=== PATIENT | female | born 2000 | race Caucasian/White ===

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

== ENCOUNTER 2019-10-11 12:14 | Emergency (ER) | payer SELFPAY ==
--- OUTSIDE RECORDS SUMMARY | 2019-10-11 12:17 | XMS REPORT | Summary of Care ---
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 ([facility]) VIKTORIYA Guillory [address] [address] Encounter Details Date Type Department Care Team Description 06/14/2019 Office Visit [facility] Jp Curiel MD [address] [place] [address] Encounter for IUD [facility] Res[facility] removal (Primary Dx) [facility] [address] [place] [address] Allergies No Known Allergiesdocumented as of this encounter (statuses as of 06/15/2019) Medications Medication Sig Dispensed Refills Start Date End Date Status naproxen (NAPROSYN) 500 Take 1 tablet by 20 tablet 0 08/23/2018 Active mg tablet mouth 2 (two) times daily with meals. diazePAM (VALIUM) 10 mg Take 1 tablet by 1 tablet 0 06/14/2019 Active tabletIndications: mouth 3 (three) Encounter for IUD times daily. removal miSOPROStol 200 mcg Take 1 tablet by 2 tablet 0 06/14/2019 Active tabletIndications: mouth 4 (four) Encounter for IUD times daily. removal Hospital, Clinic, or Ordered Dose Route Frequency Start Date End Date Status Other Facility Administered Medication ibuprofen (IBU) 800 mg Oral ONCE 06/14/2019 06/14/2019 Discontinued tablet 800 mg documented as of this encounter (statuses as of 06/15/2019) Active Problems Problem Noted Date Well woman exam 06/07/2019 Contraceptive management 06/07/2019 IUD (intrauterine device) in place 06/07/2019 documented as of this encounter (statuses as of 06/15/2019) Immunizations Name Administration Dates Next Due HPV Unspecified 07/02/2011, 07/07/2009 documented as of this encounter Social History Tobacco Use Types Packs/Day Years Used Date Current Every Day Smoker Cigarettes 0.5 Started: 06/07/2015 Smokeless Tobacco: Never Used Alcohol Use Drinks/Week oz/Week Comments Never Alcohol Habits Answer Date Recorded How often do you have a drink containing alcohol? Never 06/07/2019 How many drinks containing alcohol do you have on a typical Not asked day when you are drinking? How often do you have six or more drinks on one occasion? Not asked Sex Assigned at Date Recorded Not on file Job Start Date Occupation Industry Not on file Not on file Not on file Travel History Travel Start Travel End No recent travel history available. documented as of this encounter Last Filed Vital Signs Vital Sign Reading Time Taken Comments Blood Pressure 120/72 06/14/2019 2:17 PM CDT Pulse 63 06/14/2019 2:17 PM CDT Temperature 36.8 C (98.2 F) 06/14/2019 2:17 PM CDT Respiratory Rate 18 06/14/2019 2:17 PM CDT Oxygen Saturation - - Inhaled Oxygen Concentration - - Weight 45.4 kg (100 lb) 06/14/2019 2:17 PM CDT Height 160 cm (5' 3") 06/14/2019 2:17 PM CDT Body Mass Index 17.71 06/14/2019 2:17 PM CDT documented in this encounter Progress Notes Johan Lopez MD - 06/14/2019 2:00 PM CDT Chief complaint: Chief Complaint Patient presents with INTRAUTERINE DEVICE removal HPI Ramya Rubio is a 19 year old female who presents for IUD removal. Patient had Mirena IUD inserted 4 years ago, does not have cycles with IUD in place. She has had 2 unsuccessful attempts to remove IUD, once in [facility] and again in [facility] (06/07/19). During the removals, shewas told that IUD strings were present but both times it was unable to be removed with traction. Reports vaginal spotting since last IUD removal attempt and headache but currently denies abdominal pain, fever/chills. Patient desires IUD removal due to intermitted 10/10 suprapubic pain. Patient has tried OCPs and diaphragm in the past and desires to use condoms for future contraception. Histories OB History Para Term AB Living 0 0 0 0 0 0 SAB TAB Ectopic Multiple Live Births 0 0 0 0 0 Past Medical History: Diagnosis Date Asthma 2012 Family History Problem Relation Age of Onset Asthma Mother Pulmonary Mother Breast Cancer Maternal Grandmother Heart Maternal Grandfather High cholesterol Maternal Grandfather Family Status Relation Name Status Mo Alive MGMo MGFa Past Surgical History: Procedure Laterality Date OTHER 2004 Kidney reflex Social History Socioeconomic History Marital status: Single Spouse name: Not on file Number of children: Not on file Years of education: Not on file Highest education level: Not on file Occupational History Not on file Social Needs Financial resource strain: Not on file Food insecurity: Worry: Not on file Inability: Not on file Transportation needs: Medical: Not on file Non-medical: Not on file Tobacco Use Smoking status: Current Every Day Smoker Packs/day: 0.50 Types: Cigarettes Start date: 06/07/2015 Smokeless tobacco: Never Used Substance and Sexual Activity Alcohol use: Never Frequency: Never Drug use: Never Sexual activity: Yes Partners: Male control/protection: IUD Comment: Last intercourse: 05/31/2019 Lifestyle Physical activity: Days per week: Not on file Minutes per session: Not on file Stress: Not on file Relationships Social connections: Talks on phone: Not on file Gets together: Not on file Attends islam service: Not on file Active member of club or organization: Not on file Attends meetings of clubs or organizations: Not on file Relationship status: Not on file Intimate partner violence: Fear of current or ex partner: Not on file Emotionally abused: Not on file Physically abused: Not on file Forced sexual activity: Not on file Other Topics Concern Not on file Social History Narrative Patient feels safe at home. Social History Substance and Sexual Activity Sexual Activity Yes Partners: Male control/protection: IUD Comment: Last intercourse: 05/31/2019 Labs No new labs Radiology No new radiology. Allergies Ramya has No Known Allergies. Medications Ramya has a current medication list which includes the following prescription(s) : diazepam, misoprostol, and naproxen. Review of Systems Constitutional: Negative. Negative for chills and fever. HENT: Negative. Respiratory: Negative. Cardiovascular: Negative. Gastrointestinal: Negative. Negative for abdominal pain, nausea and vomiting. Genitourinary: Positive for vaginal bleeding. Musculoskeletal: Negative. Skin: Negative. Neurological: Positive for headaches. Psychiatric/Behavioral: Negative. BP 120/72 (BP Location: Right arm, Patient Position: Sitting, BP CUFF SIZE: Adult Medium) | Pulse 63 | Temp 36.8 C (98.2 F) (Oral) | Resp 18 | Ht 5 ' 3" (1.6 m) | Wt 100 lb (45.4 kg) | LMP (LMP Unknown) | BMI 17.71 kg/m Pregravid BMI: Could not be calculated Physical Exam Vitals reviewed. Constitutional: She appears well-developed and well-nourished. Her body habitus is normal. Cardiovascular: No peripheral edema present. Pulmonary/Chest: Normal inspiratory effort. Abdominal: Abdomen is soft. No tenderness present. Neuro/Psychiatric: She has a normal mood and affect. IUD REMOVAL PROCEDURE NOTE Preoperative Diagnoses: unsuccessful IUD removal x2 The risks, benefits and alternatives were discussed. The patient voiced her understanding. She wished to proceed and an informed consent was obtained for IUD removal. Patient was identified by name and . Patient, procedure and site were confirmed by the followingclinicians: Johan Lopez MD and KESHA. Timeout performed by Johan Lopez MD. Procedure: The patient was placed on the exam table in a lithotomy position. Vaginal speculum was inserted. The cervix and IUD strings were visualized. IUD strings were grasped with the ring forceps and firm pressure applied in an attempt to deliver the IUD but removal was unsuccessful. At this time patient requested the procedure to be stopped. The patient experienced severe cramping during removal, which resolved spontaneously prior to discharge. The vaginal speculum was removed. The patient tolerated the procedure well and there were no complications. Post-procedure instructions given. Patient verbalized understanding. Findings ~3cm of black string x2 visualized from cervical os, IUD unable to be removed with traction. Procedure was aborted due to patient pain Assessment/Plan Encounter for IUD removal - IUD strings visualized (~3cm from cervical os) but procedure terminated due to patient discomfort - Schedule patient for IUD removal with H-scope clinic - Valium 10mg tablet x1 sent to pharmacy, instructed patient to bring to h- scope appointment - Misoprostol 200mcg PO x2 sent to pharmacy, instructed patient to take 1 dose at 2100 the night prior to the procedure and another dose the morning of procedure This visit did not involve counseling and coordination that comprised more than 50% of the visit time. D[facility] Prado [facility] PGY-2 Obstetrics and Gynecology documented in this encounter Plan of Treatment Health Maintenance Due Date Last Done Comments PNEUMOCOCCAL 0-64 YEARS COMBINED 2005 SERIES (1 of 1 - PPSV23) MENINGOCOCCAL B VACCINES (1 of 2 - 2009 Risk Bexsero 2-dose series) VARICELLA VACCINES (1 of 2 - 13+ 2012 2-dose series) HPV VACCINES (1 - Female 3-dose 2014 series) DTaP,Tdap,and Td Vaccines (1 - 2018 Tdap) INFLUENZA VACCINE 07/22/2019 CHLAMYDIA SCREENING 06/07/2020 06/07/2019 MENINGOCOCCAL VACCINE Aged Out No longer eligible based on patient's age to complete this topic documented as of this encounter Results Not on filedocumented in this encounter Visit Diagnoses Diagnosis Encounter for IUD removal - Primary Encounter for removal of intrauterine contraceptive device documented in this encounter Insurance Payer Benefit Plan Subscriber ID Effective Phone Address Type / Group Dates [facility] xxxxxxxxx 2019-Prese [phone] Medicaid WOMEN nt [address] [place] [address] documented as of this encounter
--- OUTSIDE RECORDS SUMMARY | 2019-10-11 12:17 | XMS REPORT ---
:2000 Author Organization [facility] Address [address] [place] [address] [address]. [address] [place] [address] Care Team Providers Name Role Phone Unavailable Unavailable Unavailable Problems This patient has no known problems. Allergies, Adverse Reactions, Alerts This patient has no known allergies or adverse reactions. Medications This patient has no known medications.
--- OUTSIDE RECORDS SUMMARY | 2019-10-11 12:17 | XMS REPORT | Summary of Care ---
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 clinic) VIKTORIYA Guillory [address] [place] [address] Encounter Details Date Type Department Care Team Description 06/14/2019 Office Visit [facility] Jp Curiel MD [address] [place] [address] Encounter for IUD [facility] Resident removal (Primary Dx) [facility] [address], [address] [place] [address] Allergies No Known Allergiesdocumented as [...] once in [facility] and again in [facility] (06/07/19). During the removals, shewas told that [...] file Gets together: Not on file Attends evangelical service: Not on file Active member of [...] the visit time. D/[facility] Lopez MD PGY-2 Obstetrics and Gynecology documented [...] Effective Phone Address Type / Group Dates [facility] xxxxxxxxx 2019-Prese [phone] Medicaid WOMEN nt [address] [place] [address] documented as of this encounter
--- OUTSIDE RECORDS SUMMARY | 2019-10-11 12:17 | XMS REPORT | Summary of Care ---
:2000 Author Organization [facility] Address [address] [place] [id number] Care Team Providers Name Role Phone [facility]aki[facility] Butler [facility] Primary [facility] Provider Reason for Visit Reason Comments Appointment when will surgery be scheduled Encounter Details Date Type Department Care Team Description 06/19/2019 Telephone [facility] Resident Appointment (when will [facility] surgery be scheduled) [facility] [address], [address] [place] [address] Allergies No Known Allergiesdocumented as of this encounter (statuses as of 06/20/2019) Medications Medication Sig Dispensed Refills Start Date [...] (four) Encounter for IUD times daily. removal documented as of this encounter (statuses as of 06/20/2019) Active Problems Problem Noted Date Well woman exam 06/07/2019 Contraceptive management 06/07/2019 IUD (intrauterine device) in place 06/07/2019 documented as of this encounter (statuses as of 06/20/2019) Immunizations Name Administration Dates Next Due HPV [...] of this encounter Last Filed Vital Signs Not on filedocumented in this encounter Plan of Treatment Health [...] Results Not on filedocumented in this encounter Insurance Payer Benefit Plan Subscriber ID Effective Phone Address Type / Group Dates [facility] xxxxxxxxx 2019-Farhat [phone] Medicaid WOMEN nt [address] [place] [address] documented as of this encounter
[2019-10-11 14:17] LABS: Urine Blood 3+ (NEG); Urine Glucose NEGATIVE (NEG); Urine Protein 1+ (NEG)
[2019-10-11 14:41] LABS: Urine Bacteria LOADED /HPF (<20); Urine Culture Reflex Order NOT NEEDED; Urine Mucus 1+ /HPF (NONE SEEN)
[2019-10-11] MEDS ORDERED: FENTANYL CITR 100 MCG/2 ML ONE (14:51)
[2019-10-11] MEDS ORDERED: NA CHLORIDE 0.9% 1,000 ML ONE (14:52)
[2019-10-11] MEDS ORDERED: ONDANSETRON 4 MG/2 ML VIAL ONE (14:52)
[2019-10-11] MEDS ORDERED: CEFTRIAXONE/SWI 1gm 1 GM/10 ML SYR ONE (14:52)
[2019-10-11 14:56] LABS: Absolute Lymphocytes (CBC) 2.1 K/uL (0.7-4.9); Basophils % 0.4 % (0-1.3); Hematocrit 35.7 % (36.0-45.0); MPV 9.2 fL (7.6-11.3); RBC Red Blood Cell Count 4.05 M/uL (3.86-4.86)
[2019-10-11 15:09] LABS: BUN Blood Urea Nitrogen 10 mg/dL (7-18); Bicarbonate 26 mmol/L (21-32); Glucose Level 86 mg/dL (74-106); Potassium 3.9 mmol/L (3.5-5.1); Sodium Level 136 mmol/L (136-145)
--- NOTE | 2019-10-11 15:16 | ER ---
Nurse's Notes [facility] Name: Ramya Rubio Age: 19 yrs Sex: Female : 2000 Arrival Date: 10/11/2019 Time: 12:16 Bed 28 Private MD: Diagnosis: Acute tubulo-interstitial nephritis Presentation: 10/11 12:23 Presenting complaint: Patient states: I have been having abd pain, chills, back pain at la1 home, have a problem with chronic UTI. Transition of care: patient was not received from another setting of care. Onset of symptoms was October 11, 2019. Risk Assessment: Do you want to hurt yourself or someone else? Patient reports no desire to harm self or others. Initial Sepsis Screen: Does the patient meet any 2 criteria? No. Patient's initial sepsis screen is negative. Does the patient have a suspected source of infection? No. Patient's initial sepsis screen is negative. Care prior to arrival: None. 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 - Social history:: Smoking status: Patient/guardian denies using tobacco. - Ebola Screening: : No symptoms or risks identified at this time. Screenin:25 Abuse screen: Denies threats or abuse. Denies injuries from another. Nutritional aj1 screening: No deficits noted. Tuberculosis screening: No symptoms or risk factors identified. 16:04 Fall Risk None identified. aj1 Assessment: 14:25 General: Appears in no apparent distress. uncomfortable, Behavior is calm, cooperative, aj1 appropriate for age. Pain: Complains of pain in back. Neuro: Level of Consciousness is awake, alert, obeys commands, Oriented to person, place, time, situation. Cardiovascular: Patient's skin is warm and dry. Respiratory: Airway is patent Respiratory effort is even, unlabored, Respiratory pattern is regular, symmetrical. GI: Abdomen is flat, non-distended, Bowel sounds present X 4 quads. Abd is soft and non tender X 4 quads. Reports nausea, vomiting, Patient currently denies diarrhea. : Denies burning with urination, urinary frequency, urgency. EENT: No signs and/or symptoms were reported regarding the EENT system. Derm: No signs and/or symptoms reported regarding the dermatologic system. Skin is pink, warm \T\ dry. normal. Musculoskeletal: No signs and/or symptoms reported regarding the musculoskeletal system. Circulation, motion, and sensation intact. 15:16 Reassessment: Discharge pending completion of IV fluids per EMELI Deleon. aj1 15:25 Reassessment: Patient appears in no apparent distress at this time. No changes from aj1 previously documented assessment. Patient and/or family updated on plan of care and expected duration. Pain level reassessed. Patient is alert, oriented x 3, equal unlabored respirations, skin warm/dry/pink. Vital Signs: 12:25 BP 118 / 57; Pulse 72; Resp 18; Temp 99.3(O); Pulse Ox 100% on R/A; Weight 45.36 kg; la1 Height 5 ft. 3 in. (160.02 cm); 14:25 BP 108 / 62; Pulse 87; Resp 18; Pulse Ox 100% on R/A; aj1 16:02 BP 105 / 66; Pulse 82; Resp 16; Pulse Ox 97% on R/A; aj1 12:25 Body Mass Index 17.71 (45.36 kg, 160.02 cm) la1 ED Course: 12:16 Patient arrived in ED. as 12:24 Triage completed. la1 12:25 Arm band placed on left wrist. la1 13:54 Gautam Morrissey PA is [facility]. jr8 13:54 Angel Kelly MD is Attending Physician. jr8 14:10 Lucy Ang, KELLIE is Primary Nurse. aj1 14:25 Patient has correct armband on for positive identification. Bed in low position. Call aj1 light in reach. Side rails up X 1. 14:25 No provider procedures requiring assistance completed. aj1 14:35 Inserted saline lock: 22 gauge in right antecubital area, using aseptic technique. aj1 16:03 IV discontinued, intact, bleeding controlled, No redness/swelling at site. Pressure aj1 dressing applied. Administered Medications: 14:58 Drug: Rocephin 1 grams Route: IV; Rate: calculated rate; Site: right antecubital; aj1 16:01 Follow up: IV Status: Completed infusion; IV Intake: 10ml 14:58 Drug: Zofran 4 mg Route: IVP; Site: right antecubital; [facility] 16:01 Follow up: Response: No adverse reaction 14:59 Drug: NS 0.9% 1000 ml Route: IV; Rate: 1000 ml; Site: right antecubital; [facility] 16:00 Follow up: IV Status: Completed infusion; IV Intake: 1000ml 14:59 Drug: fentaNYL (PF) 25 mcg {Note: RASS score 0, patient is alert.} Route: IVP; Site: [facility] right antecubital; 16:00 Follow up: Response: No adverse reaction; Pain is decreased; RASS: Alert and Calm (0) Intake: 16:00 IV: 1000ml; Total: 1000ml. 16:01 IV: 10ml; Total: 1010ml. [facility] Outcome: 15:15 Discharge ordered by MD. chambers 16:03 Discharged to home ambulatory. aj 16:03 Condition: good 16:03 Discharge instructions given to patient, Instructed on discharge instructions, follow up and referral plans. medication usage, Demonstrated understanding of instructions, follow-up care, medications, Prescriptions given X 2. 16:04 Patient left the ED. aj Addendum: 10/14/2019 07:36 Addendum: Culture Results: Positive urine culture. No further action required. Bacteria i w sensitive to prescribed antibiotic. Signatures: Lucy Ang RN RN aj1 Vivien Ojeda Irene, RN RN iw Roszak, Josh, PA PA jr8 Sanjay Murray RN RN la1
--- NOTE | 2019-10-11 15:16 | EDPHYS ---
Physician Documentation [facility] Name: Ramya Rubio Age: 19 yrs Sex: Female : 2000 Arrival Date: 10/11/2019 Time: 12:16 Bed 28 Private MD: ED Physician Angel Kelly HPI: 10/11 15:08 This 19 yrs old Female presents to ER via Ambulatory with complaints of jr8 Fever, Vomiting, Pelvic Pain, Low Back Pain. 15:08 The patient reports fever, not measured (subjective). Onset: The symptoms/episode jr8 began/occurred acutely, yesterday. Modifying factors: there are no obvious modifying factors. Associated signs and symptoms: Pertinent positives: abdominal pain, low back pain. Severity of symptoms: At their worst the symptoms were moderate in the emergency department the symptoms are unchanged. The patient has experienced similar episodes in the past, a few times. The patient has not recently seen a physician. Patient stated that she has history of both bladder and kidney infections. Stated that she started to have low back pain, abdominal pain, fever, and vomiting. Thinks she may have another one . 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 - Social history:: Smoking status: Patient/guardian denies using tobacco. - Ebola Screening: : No symptoms or risks identified at this time. ROS: 15:08 Eyes: Negative for injury, pain, redness, and discharge, ENT: Negative for injury, jr8 pain, and discharge, Neck: Negative for injury, pain, and swelling, Cardiovascular: Negative for chest pain, palpitations, and edema, Respiratory: Negative for shortness of breath, cough, wheezing, and pleuritic chest pain, MS/Extremity: Negative for injury and deformity, Skin: Negative for injury, rash, and discoloration, Neuro: Negative for headache, weakness, numbness, tingling, and seizure. 15:08 Abdomen/GI: Positive for abdominal pain, nausea, vomiting, Negative for diarrhea, constipation, abdominal cramps, abdominal distension, anorexia, dysphagia, hematemesis, black/tarry stool, rectal pain, rectal bleeding, bowel incontinence, flatulence. 15:08 Back: Positive for pain at rest, Negative for pain with movement. Exam: 15:08 Eyes: Pupils equal round and reactive to light, extra-ocular motions intact. Lids and jr8 lashes normal. Conjunctiva and sclera are non-icteric and not injected. Cornea within normal limits. Periorbital areas with no swelling, redness, or edema. ENT: Nares patent. No nasal discharge, no septal abnormalities noted. Tympanic membranes are normal and external auditory canals are clear. Oropharynx with no redness, swelling, or masses, exudates, or evidence of obstruction, uvula midline. Mucous membranes moist. Neck: Trachea midline, no thyromegaly or masses palpated, and no cervical lymphadenopathy. Supple, full range of motion without nuchal rigidity, or vertebral point tenderness. No Meningismus. Cardiovascular: Regular rate and rhythm with a normal S1 and S2. No gallops, murmurs, or rubs. Normal PMI, no JVD. No pulse deficits. Respiratory: Lungs have equal breath sounds bilaterally, clear to auscultation and percussion. No rales, rhonchi or wheezes noted. No increased work of breathing, no retractions or nasal flaring. Skin: Warm, dry with normal turgor. Normal color with no rashes, no lesions, and no evidence of cellulitis. MS/ Extremity: Pulses equal, no cyanosis. Neurovascular intact. Full, normal range of motion. Neuro: Awake and alert, GCS 15, oriented to person, place, time, and situation. Cranial nerves II-XII grossly intact. Motor strength 5/5 in all extremities. Sensory grossly intact. Cerebellar exam normal. Normal gait. 15:08 Abdomen/GI: Inspection: abdomen appears normal, Bowel sounds: active, all quadrants, Palpation: soft, in all quadrants, mild abdominal tenderness, in the suprapubic area, right lower quadrant and left lower quadrant, mass, is not appreciated, rebound tenderness, is not appreciated, voluntary guarding, is not appreciated, involuntary guarding, is not appreciated, no appreciated organomegaly, Indicators: McBurney's point is not tender, Cox's sign is negative, Rovsing's sign is negative, Liver: tenderness, is not appreciated. 15:08 Back: pain, that is mild, of the mid back area, ROM is normal, CVA tenderness, that is moderate, is noted bilaterally, muscle spasm, is not present. Vital Signs: 12:25 BP 118 / 57; Pulse 72; Resp 18; Temp 99.3(O); Pulse Ox 100% on R/A; Weight 45.36 kg; la1 Height 5 ft. 3 in. (160.02 cm); 14:25 BP 108 / 62; Pulse 87; Resp 18; Pulse Ox 100% on R/A; aj1 16:02 BP 105 / 66; Pulse 82; Resp 16; Pulse Ox 97% on R/A; aj1 12:25 Body Mass Index 17.71 (45.36 kg, 160.02 cm) la1 MDM: 13:58 Patient medically screened. jr8 15:15 Data reviewed: vital signs, nurses notes, lab test result(s). Data interpreted: Pulse jr8 oximetry: on room air is 100 %. Interpretation: normal. Counseling: I had a detailed discussion with the patient and/or guardian regarding: the historical points, exam findings, and any diagnostic results supporting the discharge/admit diagnosis, lab results, the need for outpatient follow up, a family practitioner, to return to the emergency department if symptoms worsen or persist or if there are any questions or concerns that arise at home. Response to treatment: the patient's symptoms have markedly improved after treatment, patient is well hydrated. 10/11 13:18 Order name: Urine Microscopic Only; Complete Time: 15:10 10/11 13:18 Order name: Urine Culture 10/11 13:21 Order name: Urine Dipstick--Ancillary (enter results); Complete Time: 14:18 10/11 13:21 Order name: Urine --Ancillary (enter results); Complete Time: 14:18 10/11 14:19 Order name: CBC with Diff; Complete Time: 15:10 [facility] 10/11 14:19 Order name: Basic Metabolic Panel; Complete Time: 15:10 [facility] 10/11 13:22 Order name: Urine Dipstick-Ancillary (obtain specimen); Complete Time: 13:22 10/11 13:22 Order name: Urine Test (obtain specimen); Complete Time: 13:22 10/11 14:19 Order name: IV; Complete Time: 14:46 jr8 Administered Medications: 14:58 Drug: Rocephin 1 grams Route: IV; Rate: calculated rate; Site: right antecubital; [facility] 16:01 Follow up: IV Status: Completed infusion; IV Intake: 10ml [facility] 14:58 Drug: Zofran 4 mg Route: IVP; Site: right antecubital; [facility] 16:01 Follow up: Response: No adverse reaction [facility] 14:59 Drug: NS 0.9% 1000 ml Route: IV; Rate: 1000 ml; Site: right antecubital; [facility] 16:00 Follow up: IV Status: Completed infusion; IV Intake: 1000ml [facility] 14:59 Drug: fentaNYL (PF) 25 mcg {Note: RASS score 0, patient is alert.} Route: IVP; Site: [facility] right antecubital; 16:00 Follow up: Response: No adverse reaction; Pain is decreased; RASS: Alert and Calm (0) [facility] Disposition: 17:29 Co-signature as Attending Physician, Angel Kelly MD. rn Disposition: 10/11/19 15:15 Discharged to Home. Impression: Acute tubulo-interstitial nephritis. - Condition is Stable. - Discharge Instructions: Pyelonephritis, Adult. - Prescriptions for Zofran 4 mg Oral Tablet - take 1 tablet by ORAL route every 12 hours As needed; 20 tablet. Bactrim DS 800- 160 mg Oral Tablet - take 1 tablet by ORAL route every 12 hours for 10 days; 20 tablet. - Work release form, Family Work Release, Medication Reconciliation Form, Thank You Letter, Antibiotic Education, Prescription Opioid Use form. - Follow up: Private Physician; When: 2 - 3 days; Reason: Recheck today's complaints, Continuance of care, Re-evaluation by your physician. - Problem is new. - Symptoms have improved. Signatures: Dispatcher [employer] [facility] Lucy Ang RN RN aj1 Angel Kelly MD MD rn Smirch, Shelby, RN RN ss Roszak, Josh, PA PA jr8 Sanjay Murray RN RN la1 Corrections: (The following items were deleted from the chart) 16:04 15:15 10/11/2019 15:15 Discharged to Home. Impression: Acute tubulo-interstitial aj1 nephritis. Condition is Stable. Forms are Medication Reconciliation Form, Thank You Letter, Antibiotic Education, Prescription Opioid Use. Follow up: Private Physician; When: 2 - 3 days; Reason: Recheck today's complaints, Continuance of care, Re-evaluation by your physician. Problem is new. Symptoms have improved. jr8
[2019-10-11 17:11] VITALS: TEMP 99.3
[2019-10-11 17:13] VITALS: BP 105/66; O2SAT 97
== END 2019-10-11 16:04 | disposition home or self-care (01) ==
LOC: ER 12:14
DX: N10 Acute pyelonephritis (principal)
CPT/HCPCS: 36415; 80048; 81003; 81015; 81025; 85025; 87077; 87086; 87088; 87186; 96365; 96375; 99283; J0696; J2405; J3010; J7030

== ENCOUNTER 2025-07-09 04:51 | Emergency (ER) | payer BC ==
--- OUTSIDE RECORDS SUMMARY | 2025-07-09 04:55 | XMS REPORT | Continuity of Care Document ---
Author Name Unknown Address [address] [facility] [place]. [address] [place] [address] Organization [facility] Address [address] [facility] [place]. [address] [place] [address] Care Team Providers Care Coal Sample Tester Name Role Phone Cayetano Herbert Attending Clinician Unavailab Cayetano Cruz Admitting Clinician Unavailab tory Payers Payer Name Policy Type Policy Number Effective Date Expirati on Date Source BCBS COMM [id number] 2024 00:00:00 Allergies, Adverse Reactions, Alerts Allergy Name Allergy Type Status Severity Reaction(s) Onset Date Inactive Date Treating Clinician Comments Source No Known Allergie s DA Active U 2022-11 1-20 00:00: 00 [facility] No Known Allergie s DA Active U 2022-11 0-17 00:00: 00 [facility] No Known Allergie s DA Active U 7 00:00: 00 [facility] No Known Allergie s DA Active U 7 00:00: 00 [facility] Procedures Procedure Date / Time Performed Performing Clinicia n Source [id number] 2023-10-11 00:00:00 [facility][email or web address] [facility] [id number] 2023-10-11 00:00:00 [facility]01 [facility] [id number] 2023-10-11 00:00:00 [facility]01 [facility] [id number] 2023-10-11 00:00:00 [facility]01 [facility] [id number] 2023-10-10 00:00:00 [facility]01 [facility] [id number] 2023-10-10 00:00:00 [facility]01 [facility] [id number] 2023-10-10 00:00:00 [facility]01 [facility] [id number] 2023-10-10 00:00:00 [facility]01 [facility] [id number] 2021-06-14 00:00:00 [facility]01 [facility] [id number] 2021-06-14 00:00:00 [facility]01 [facility] [id number] 2021-06-14 00:00:00 [facility]01 [facility] [id number] 2021-06-14 00:00:00 [facility]01 [facility] [id number] 2021-06-14 00:00:00 [facility]01 [facility] [id number] 2021-06-14 00:00:00 [facility]01 [facility] Encounters Start Date/Time End Date/Time Encounter Type Admission Type Attending [facility] Care Facility Care Department Encounter ID Source 2021-06-17 09:16:00 Inpatient VIRIDIANA Jameston Cayetano [facility] [id number] [facility] 2025-05-17 13:25:46 2025-05-17 14:50:53 Outpatient Elective [facility] [id number] [facility] 2023-10-10 21:08:00 2023-10-12 23:55:00 Inpatient Cayetano Art [facility] [id number] [facility] 2023-09-24 14:30:00 2023-09-24 15:15:00 Emergency EM Cayetano Herbert [facility] [id number] [facility] 2023-09-06 11:53:00 2023-09-06 14:53:00 Emergency EM Cayetano Herbert [facility] [id number] [facility] 2021-06-13 11:50:00 2021-06-16 19:07:00 Inpatient Cayetano Dang [facility] [id number] [facility] Results Test Description Test Time Test Comments Results Result Co mments Source [id number] 13:05:00* Test Item Value Reference Range Interpretation Comme nts GLUBED (test code = GLUBED) 82 mg/dL 65-110 N [id number] 10:31:00* Test Item Value Reference Range Interpretation Comme nts GLUCOSE (test code = GLU) 84 mg/dL 65-110 N COMPREHENSIVE METABOLIC [id number] 09:28:00* Test Item Value Reference Range Interpretation Comme nts SODIUM (test code = NA) 135 mEq/L 135-145 N POTASSIUM (test code = K) 4.0 mEq/L 3.5-5.0 N CHLORIDE (test code = CL) 100 mEq/L 100-115 N CARBON DIOXIDE (test code = CO2) 22 mEq/L 22-31 N ANION GAP (test code = GAP) 17.30 10-20 N GLUCOSE (test code = GLU) 84 mg/dL 65-110 N BLOOD UREA NITROGEN (test code = BUN) 9 mg/dL 7-18 N CREATININE (test code = CREAT) 0.6 mg/dL 0.5-1.0 N TOTAL PROTEIN (test code = PROT) 7.3 gm/dL 6.3-8.2 N ALBUMIN (test code = ALB) 3.2 gm/dL 3.4-4.8 L CALCIUM (test code = CA) 9.5 mg/dL 8.4-10.2 N BILIRUBIN TOTAL (test code = BILT) 0.3 mg/dL 0.2-1.0 N SGOT/AST (test code = AST) 20 units/L 15-37 N SGPT/ALT (test code = ALT) 13 units/L 12-78 N ALKALINE PHOSPHATASE TOTAL (test code = ALKP) 214 units/L 46-116 H GLOMERULAR FILTRATION RATE (test code = GFR) 128 ml/min >60 N The Glomerular Filtration Rate is a calculated parameterbased on serum Creatinine, patient age and sex. GFR valuesless than 60 mL/min/1.73 square meters are indicative ofChronic Kidney Disease. Values less than 15 mL/min/1.73square meters indicate Kidney failure. The calculation forGFR is based on the CKD-EPI (202) calculation. This formulais race indifferent and is the recommended formula for GFRby the National Kidney Foundation for Adults.The GFR will not calculate if the sex is unknown or if thepatient's age is <18 years. CBC W/AUTO [id number] 09:13:00* Test Item Value Reference Range Interpretation Comme nts WHITE BLOOD CELL (test code = WBC) 9.5 K/mm3 6.5-12.3 N RED BLOOD CELL (test code = RBC) 4.04 M/mm3 3.51-4.69 N HEMOGLOBIN (test code = HGB) 11.1 g/dL 10.1-13.8 N HEMATOCRIT (test code = HCT) 34.2 % 32.5-41.8 N MEAN CELL VOLUME (test code = MCV) 84.7 fL 84.6-96.6 N MEAN CELL HGB (test code = MCH) 27.5 pg 27.3-33.9 N MEAN CELL HGB CONCETRATION ( test code = MCHC) 32.5 gm/dL 32.0-34.2 N RED CELL DISTRIBUTION WIDTH (test code = RDW) 14.1 % 12.2-16.3 N PLATELET COUNT (test code = PLT) 186 K/mm3 134-363 N IMMATURE PLATELET FRACTION ( test code = IPF) 13.0 % 0.0-10.8 H MEAN PLATELET VOLUME (test c ode = MPV) 12.7 fL 9.2-12.7 N NEUTROPHIL % (test code = NT%) 61.7 % 57.9-77.3 N LYMPHOCYTE % (test code = LY%) 27.2 % 14.5-29.7 N MONOCYTE % (test code = MO%) 9.8 % 3.6-10.2 N EOSINOPHIL % (test code = EO%) 0.8 % 0.0-3.0 N BASOPHIL % (test code = BA%) 0.2 % 0.1-0.9 N NEUTROPHIL # (test code = NT#) 5.8 K/mm3 LYMPHOCYTE # (test code = LY#) 2.6 K/mm3 MONOCYTE # (test code = MO#) 0.9 K/mm3 EOSINOPHIL # (test code = EO#) 0.08 K/mm3 BASOPHIL # (test code = BA#) 0.0 K/mm3 RBC MORPHOLOGY REQUIRED (carol t code = RBCM) NORMAL NORMAL PLATELET MORPHOLOGY REQUIRED (test code = PLTMR) NORMAL NORMAL AG HEPATITIS B [id number] 02:48:00* Test Item Value Reference Range Interpretation Comme nts AG HEPATITIS B SURFACE (test code = HBSAG) NONREACTIVE NONREACTIVE AB HEPATITIS C [id number] 02:48:00* Test Item Value Reference Range Interpretation Comme nts AB HEPATITIS C (test code = HCVAB) NONREACTIVE NONREACTIVE SIGNAL TO CUTOFF (test code = CUTOFF) 0.14 <0.80 N AB [id number] 02:48:00* Test Item Value Reference Range Interpretation Comme nts AB TREPONEMA (test code = TREPAB) NONREACTIVE NONREACTIVE AB HIV 1 02:48:00* Test Item Value Reference Range Interpretation Comme nts AB HIV 1 2 (test code = GPD01KY) NONREACTIVE NONREACTIVE Done by [employer] 4[employer] Gen HIV Ag/Ab Combo Screen [id number] 22:52:00* Test Item Value Reference Range Interpretation Comme nts GLUCOSE (test code = GLU) 99 mg/dL 65-110 N CBC W/AUTO [id number] 22:26:00* Test Item Value Reference Range Interpretation Comme nts WHITE BLOOD CELL (test code = WBC) 9.6 K/mm3 6.5-12.3 N RED BLOOD CELL (test code = RBC) 3.69 M/mm3 3.51-4.69 N HEMOGLOBIN (test code = HGB) 10.4 g/dL 10.1-13.8 N HEMATOCRIT (test code = HCT) 31.5 % 32.5-41.8 L MEAN CELL VOLUME (test code = MCV) 85.4 fL 84.6-96.6 N MEAN CELL HGB (test code = MCH) 28.2 pg 27.3-33.9 N MEAN CELL HGB CONCETRATION ( test code = MCHC) 33.0 gm/dL 32.0-34.2 N RED CELL DISTRIBUTION WIDTH (test code = RDW) 13.9 % 12.2-16.3 N PLATELET COUNT (test code = PLT) 187 K/mm3 134-363 N IMMATURE PLATELET FRACTION ( test code = IPF) 13.9 % 0.0-10.8 H MEAN PLATELET VOLUME (test c ode = MPV) 13.4 fL 9.2-12.7 H NEUTROPHIL % (test code = NT%) 66.5 % 57.9-77.3 N LYMPHOCYTE % (test code = LY%) 21.6 % 14.5-29.7 N MONOCYTE % (test code = MO%) 10.8 % 3.6-10.2 H EOSINOPHIL % (test code = EO%) 0.5 % 0.0-3.0 N BASOPHIL % (test code = BA%) 0.2 % 0.1-0.9 N NEUTROPHIL # (test code = NT#) 6.4 K/mm3 LYMPHOCYTE # (test code = LY#) 2.1 K/mm3 MONOCYTE # (test code = MO#) 1.0 K/mm3 EOSINOPHIL # (test code = EO#) 0.05 K/mm3 BASOPHIL # (test code = BA#) 0.0 K/mm3 RBC MORPHOLOGY REQUIRED (carol t code = RBCM) NORMAL NORMAL PLATELET MORPHOLOGY REQUIRED (test code = PLTMR) NORMAL NORMAL [id number] 21:38:00* Test Item Value Reference Range Interpretation Comme nts GLUBED (test code = GLUBED) 86 mg/dL 65-110 N - US FET BIO PH NH W/O [id number] [facility]:36[facility] 2000 Sex: F Patient Name: STEFFEN PARMAR Unit No: [id number] EXAMS: CPT CODE: [id number] US FET BIO PHPR W/O NST 73839 BIOPHYSICAL PROFILE COMPARISON: None PRESENTATION: Cephalic PLACENTA: Anterior, grade 2. No placenta previa HEART RATE: 147 bpm CERVICAL LENGTH: 3.7 cm Breathin Somatic motion: 2 Tone: 2 MICHAEL: 16.2 cm 2 BIOPHYSICAL PROFILE: 06/28 at 1336 Reported and signed by: Lee Ricardo MD CC: Cayetano Herbert MD Technologist: Nadya Durand RDMS Probe: Trnscrbd D/ (1336) t.SDR.[id number] Orig Print D/T: S: 09/06/2023 (1339) [facility] NAME: STEFFEN PARMAR Radiology Department PHYS: Cayetano Herbert [address] : 2000 AGE: 23 SEX: F [place] [address] LOC: F.STAR PHONE #: [phone] EXAM DATE: 09/06/2023 STATUS: REG ER FAX #: [phone] RAD NO: Page 1 Signed Report Patient Name: STEFFEN PARMAR Unit No: [id number] EXAMS: CPT CODE: [id number] FET BIO PH NH W/O NST 32068 (Continued) [facility] NAME: STEFFEN PARMAR Radiology Department PHYS: CHRISTINE Cayetano Herbert [address] : 2000 AGE: 23 SEX: F [place] [address] LOC: SHREE PHONE #: [phone] DATE: 09/06/2023 STATUS: REG ER FAX #: [phone] RAD NO: Page 2 Signed ReportCOMPREHENSIVE METABOLIC PANEL 2021-06-16 07:38:00* Test Item Value Reference Range Interpretation Comme nts SODIUM (test code = NA) 139 mEq/L 135-145 N POTASSIUM (test code = K) 4.1 mEq/L 3.5-5.0 N CHLORIDE (test code = CL) 104 mEq/L 100-115 N CARBON DIOXIDE (test code = CO2) 26 mEq/L 22-31 N ANION GAP (test code = GAP) 13.10 10-20 N GLUCOSE (test code = GLU) 109 mg/dL 65-110 N BLOOD UREA NITROGEN (test co de = BUN) 7 mg/dL 7-18 N GLOMERULAR FILTRATION RATE ( test code = GFR) 69 ml/min >60 N CREATININE (test code = CREAT) 1.0 mg/dL 0.5-1.0 N TOTAL PROTEIN (test code = PROT) 6.0 gm/dL 6.3-8.2 L ALBUMIN (test code = ALB) 2.4 gm/dL 3.4-4.8 L CALCIUM (test code = CA) 7.8 mg/dL 8.4-10.2 L BILIRUBIN TOTAL (test code = BILT) 0.2 mg/dL 0.2-1.0 N SGOT/AST (test code = AST) 21 units/L 15-37 N SGPT/ALT (test code = ALT) 13 units/L 12-78 N ALKALINE PHOSPHATASE TOTAL ( test code = ALKP) 176 units/L 46-116 H CBC W/AUTO [id number] 07:13:00* Test Item Value Reference Range Interpretation Comme nts WHITE BLOOD CELL (test code = WBC) 13.6 K/mm3 6.5-12.3 H RED BLOOD CELL (test code = RBC) 3.09 M/mm3 3.51-4.69 L HEMOGLOBIN (test code = HGB) 9.0 g/dL 10.1-13.8 L HEMATOCRIT (test code = HCT) 27.4 % 32.5-41.8 L MEAN CELL VOLUME (test code = MCV) 88.7 fL 84.6-96.6 N MEAN CELL HGB (test code = MCH) 29.1 pg 27.3-33.9 N MEAN CELL HGB CONCETRATION ( test code = MCHC) 32.8 gm/dL 32.0-34.2 N RED CELL DISTRIBUTION WIDTH (test code = RDW) 13.5 % 12.2-16.3 N PLATELET COUNT (test code = PLT) 173 K/mm3 134-363 N MEAN PLATELET VOLUME (test c ode = MPV) 12.8 fL 9.2-12.7 H NEUTROPHIL % (test code = NT%) 74.8 % 57.9-77.3 N LYMPHOCYTE % (test code = LY%) 16.1 % 14.5-29.7 N MONOCYTE % (test code = MO%) 6.8 % 3.6-10.2 N EOSINOPHIL % (test code = EO%) 1.3 % 0.0-3.0 N BASOPHIL % (test code = BA%) 0.3 % 0.1-0.9 N NEUTROPHIL # (test code = NT#) 10.1 K/mm3 LYMPHOCYTE # (test code = LY#) 2.2 K/mm3 MONOCYTE # (test code = MO#) 0.9 K/mm3 EOSINOPHIL # (test code = EO#) 0.18 K/mm3 BASOPHIL # (test code = BA#) 0.0 K/mm3 RBC MORPHOLOGY REQUIRED (carol t code = RBCM) NORMAL NORMAL PLATELET MORPHOLOGY REQUIRED (test code = PLTMR) NORMAL NORMAL UA RFLX MICR CULT IF [id number] 06:22:00* Test Item Value Reference Range Interpretation Comme nts UA COLOR (test code = COLU) COLORLESS YELLOW UA APPEARANCE (test code = APPU) CLEAR CLEAR UA GLUCOSE DIPSTICK (test co de = DGLUU) NEGATIVE NEG UA BILIRUBIN DIPSTICK (test code = BILU) NEGATIVE NEG UA KETONE DIPSTICK (test cod e = KETU) NEGATIVE NEG UA SPECIFIC GRAVITY (test co de = SGU) 1.004 1.001-1.035 N UA BLOOD DIPSTICK (test code = DEVIN) 2+ NEG A UA PH DIPSTICK (test code = KIMBERLEE) 6.0 5-9 UA PROTEIN DIPSTICK (test co de = PROU) NEGATIVE NEG UA UROBILINIOGEN DIPSTICK (test code = URO) NEGATIVE mg/dL NEG UA NITRITE DIPSTICK (test co de = HALINA) NEG NEG UA LEUKOCYTE ESTERASE DIPSTI CK (test code = LEUU) NEG NEG UA WBC (test code = WBCU) 3-5 #/hpf NONE SEEN A UA RBC (test code = RBCU) 6-10 #/hpf NONE SEEN A UA EPITHELIAL CELLS (test co de = EPIU) RARE #/HPF RARE-FEW UA BACTERIA (test code = BACU) RARE /HPF RARE-FEW UA MUCUS (test code = MUCU) RARE NONE SEEN Indication for culture: RiskForSepsis-no oth srcSpecimen Description: CLEAN CATCHLACTIC [id number] 06:22:00* Test Item Value Reference Range Interpretation Comme nts LACTIC ACID (test code = LACT) 1.1 MMOL/L 0.5-2.2 N PROTHROMBIN [id number] 06:22:00* Test Item Value Reference Range Interpretation Comme nts PROTHROMBIN TIME PATIENT (te st code = PTP) 10.4 secs 10.1-12.3 N IS PATIENT ON ANTICOAGULANTS ? NINTERNATIONAL NORMAL [id number] 06:22:00* Test Item Value Reference Range Interpretation Comme nts INTERNATIONAL NORMAL RATIO (test code = INR) 0.94 The INR is to be used only for monitoring oral anticoagulanttherapy. INDICATION INR VALUE 1. Prophylaxis including high risk surgery 2.0 - 2.52. Deep venous thrombosis. Pulmonary embolism. Atrial fibrillation or bioprosthetic heart valves 2.0 - 3.03. Mechanical heart valves or recurrent systemic embolism. 3.0 - 3.5 IS PATIENT ON ANTICOAGULANTS ? NTHROMBOPLASTIN TIME [id number] 06:22:00* Test Item Value Reference Range Interpretation Comme nts THROMBOPLASTIN TIME PARTIAL (test code = PTT) 31.3 secs 22-38 N IS PATIENT ON ANTICOAGULANTS ? NCOMPREHENSIVE METABOLIC [id number] 06:19:00 * Test Item Value Reference Range Interpretation Comme nts SODIUM (test code = NA) 142 mEq/L 135-145 N POTASSIUM (test code = K) 4.3 mEq/L 3.5-5.0 N CHLORIDE (test code = CL) 110 mEq/L 100-115 N CARBON DIOXIDE (test code = CO2) 25 mEq/L 22-31 N ANION GAP (test code = GAP) 11.00 10-20 N GLUCOSE (test code = GLU) 78 mg/dL 65-110 N BLOOD UREA NITROGEN (test co de = BUN) 10 mg/dL 7-18 N GLOMERULAR FILTRATION RATE ( test code = GFR) 69 ml/min >60 N CREATININE (test code = CREAT) 1.0 mg/dL 0.5-1.0 N TOTAL PROTEIN (test code = PROT) 5.1 gm/dL 6.3-8.2 L ALBUMIN (test code = ALB) 2.1 gm/dL 3.4-4.8 L CALCIUM (test code = CA) 8.2 mg/dL 8.4-10.2 L BILIRUBIN TOTAL (test code = BILT) 0.2 mg/dL 0.2-1.0 N SGOT/AST (test code = AST) 28 units/L 15-37 N SGPT/ALT (test code = ALT) 15 units/L 12-78 N ALKALINE PHOSPHATASE TOTAL ( test code = ALKP) 168 units/L 46-116 H CBC W/AUTO [id number] 06:03:00* Test Item Value Reference Range Interpretation Comme nts WHITE BLOOD CELL (test code = WBC) 20.5 K/mm3 6.5-12.3 HH RESULTS CALLED Enrique PierreREAD BACK & CONFIRMED? YES.BY [id number] 06/15/21601.Results verified by repeat analysis RED BLOOD CELL (test code = RBC) 2.82 M/mm3 3.51-4.69 L HEMOGLOBIN (test code = HGB) 8.2 g/dL 10.1-13.8 L HEMATOCRIT (test code = HCT) 25.1 % 32.5-41.8 L MEAN CELL VOLUME (test code = MCV) 89.0 fL 84.6-96.6 N MEAN CELL HGB (test code = MCH) 29.1 pg 27.3-33.9 N MEAN CELL HGB CONCETRATION (test code = MCHC) 32.7 gm/dL 32.0-34.2 N RED CELL DISTRIBUTION WIDTH (test code = RDW) 13.3 % 12.2-16.3 N PLATELET COUNT (test code = PLT) 128 K/mm3 134-363 L IMMATURE PLATELET FRACTION (test code = IPF) 23.1 % 0.0-10.8 H MEAN PLATELET VOLUME (test code = MPV) 14.0 fL 9.2-12.7 H NEUTROPHIL % (test code = NT%) 76.5 % 57.9-77.3 N LYMPHOCYTE % (test code = LY%) 14.7 % 14.5-29.7 N MONOCYTE % (test code = MO%) 7.8 % 3.6-10.2 N EOSINOPHIL % (test code = EO%) 0.3 % 0.0-3.0 N BASOPHIL % (test code = BA%) 0.2 % 0.1-0.9 N NEUTROPHIL # (test code = NT#) 15.7 K/mm3 LYMPHOCYTE # (test code = LY#) 3.0 K/mm3 MONOCYTE # (test code = MO#) 1.6 K/mm3 EOSINOPHIL # (test code = EO#) 0.06 K/mm3 BASOPHIL # (test code = BA#) 0.0 K/mm3 RBC MORPHOLOGY REQUIRED (test code = RBCM) NORMAL NORMAL PLATELET MORPHOLOGY REQUIRED (test code = PLTMR) NORMAL NORMAL CBC W/AUTO [id number] 23:27:00* Test Item Value Reference Range Interpretation Comme nts WHITE BLOOD CELL (test code = WBC) 18.0 K/mm3 6.5-12.3 H RED BLOOD CELL (test code = RBC) 2.95 M/mm3 3.51-4.69 L HEMOGLOBIN (test code = HGB) 8.6 g/dL 10.1-13.8 L HEMATOCRIT (test code = HCT) 26.6 % 32.5-41.8 L MEAN CELL VOLUME (test code = MCV) 90.2 fL 84.6-96.6 N MEAN CELL HGB (test code = MCH) 29.2 pg 27.3-33.9 N MEAN CELL HGB CONCETRATION (test code = MCHC) 32.3 gm/dL 32.0-34.2 N RED CELL DISTRIBUTION WIDTH (test code = RDW) 13.2 % 12.2-16.3 N PLATELET COUNT (test code = PLT) 104 K/mm3 134-363 L SPECIMEN CLOTTED PLT CLUMPS IMMATURE PLATELET FRACTION (test code = IPF) 24.3 % 0.0-10.8 H MEAN PLATELET VOLUME (test code = MPV) 14.1 fL 9.2-12.7 H NEUTROPHIL % (test code = NT%) 77.5 % 57.9-77.3 H LYMPHOCYTE % (test code = LY%) 14.3 % 14.5-29.7 L MONOCYTE % (test code = MO%) 7.4 % 3.6-10.2 N EOSINOPHIL % (test code = EO%) 0.2 % 0.0-3.0 N BASOPHIL % (test code = BA%) 0.2 % 0.1-0.9 N NEUTROPHIL # (test code = NT#) 14.0 K/mm3 LYMPHOCYTE # (test code = LY#) 2.6 K/mm3 MONOCYTE # (test code = MO#) 1.3 K/mm3 EOSINOPHIL # (test code = EO#) 0.04 K/mm3 BASOPHIL # (test code = BA#) 0.0 K/mm3 RBC MORPHOLOGY REQUIRED (test code = RBCM) NORMAL NORMAL PLATELET MORPHOLOGY REQUIRED (test code = PLTMR) ABNORMAL NORMAL PLT CLUMPS URINALYSIS [id number] 10:28:00* Test Item Value Reference Range Interpretation Comme nts UA COLOR (test code = COLU) YELLOW YELLOW UA APPEARANCE (test code = APPU) Slightly-Cloudy CLEAR UA GLUCOSE DIPSTICK (test code = DGLUU) NEGATIVE NEG UA BILIRUBIN DIPSTICK (test code = BILU) NEGATIVE NEG UA KETONE DIPSTICK (test cod e = KETU) NEGATIVE NEG UA SPECIFIC GRAVITY (test code = SGU) 1.019 1.001-1.035 N UA BLOOD DIPSTICK (test code = DEVIN) NEG NEG UA PH DIPSTICK (test code = KIMBERLEE) 6.0 5-9 UA PROTEIN DIPSTICK (test code = PROU) 3+ NEG A UA UROBILINIOGEN DIPSTICK (test code = URO) NEGATIVE mg/dL NEG UA NITRITE DIPSTICK (test code = HALINA) NEG NEG UA LEUKOCYTE ESTERASE DIPSTICK (test code = LEUU) NEG NEG UA WBC (test code = WBCU) 6-10 #/hpf NONE SEEN A UA RBC (test code = RBCU) 0-2 #/hpf NONE SEEN UA EPITHELIAL CELLS (test code = EPIU) FEW #/HPF RARE-FEW UA BACTERIA (test code = BACU) RARE /HPF RARE-FEW UA MUCUS (test code = MUCU) 4+ NONE SEEN URINE SAMPLE: CLEAN CATCHUR PROTEIN/CREATININE [id number] 10:28:00* Test Item Value Reference Range Interpretation Comme nts UR PROTEIN RANDOM (test code = PROTU) 367.2 mg/dL UR CREATININE RANDOM (test code = CREATU) 222.3 mg/dL PROTEIN/CREATININE RATIO (test code = P/CRATIO) 1651.8 mg/gcrea <200 H URINE SAMPLE: CLEAN CATCHCBC W/AUTO [id number] 10:27:00* Test Item Value Reference Range Interpretation Comme nts WHITE BLOOD CELL (test code = WBC) 12.2 K/mm3 6.5-12.3 N RED BLOOD CELL (test code = RBC) 3.86 M/mm3 3.51-4.69 N HEMOGLOBIN (test code = HGB) 11.1 g/dL 10.1-13.8 N HEMATOCRIT (test code = HCT) 33.8 % 32.5-41.8 N MEAN CELL VOLUME (test code = MCV) 87.6 fL 84.6-96.6 N MEAN CELL HGB (test code = MCH) 28.8 pg 27.3-33.9 N MEAN CELL HGB CONCETRATION ( test code = MCHC) 32.8 gm/dL 32.0-34.2 N RED CELL DISTRIBUTION WIDTH (test code = RDW) 13.1 % 12.2-16.3 N PLATELET COUNT (test code = PLT) 164 K/mm3 134-363 N MEAN PLATELET VOLUME (test c ode = MPV) 14.2 fL 9.2-12.7 H NEUTROPHIL % (test code = NT%) 73.1 % 57.9-77.3 N LYMPHOCYTE % (test code = LY%) 16.0 % 14.5-29.7 N MONOCYTE % (test code = MO%) 9.9 % 3.6-10.2 N EOSINOPHIL % (test code = EO%) 0.3 % 0.0-3.0 N BASOPHIL % (test code = BA%) 0.2 % 0.1-0.9 N NEUTROPHIL # (test code = NT#) 8.9 K/mm3 LYMPHOCYTE # (test code = LY#) 2.0 K/mm3 MONOCYTE # (test code = MO#) 1.2 K/mm3 EOSINOPHIL # (test code = EO#) 0.04 K/mm3 BASOPHIL # (test code = BA#) 0.0 K/mm3 RBC MORPHOLOGY REQUIRED (carol t code = RBCM) NORMAL NORMAL PLATELET MORPHOLOGY REQUIRED (test code = PLTMR) NORMAL NORMAL COMPREHENSIVE METABOLIC [id number] 09:54:00* Test Item Value Reference Range Interpretation Comme nts SODIUM (test code = NA) 137 mEq/L 135-145 N POTASSIUM (test code = K) 4.2 mEq/L 3.5-5.0 N CHLORIDE (test code = CL) 104 mEq/L 100-115 N CARBON DIOXIDE (test code = CO2) 22 mEq/L 22-31 N ANION GAP (test code = GAP) 15.10 10-20 N GLUCOSE (test code = GLU) 77 mg/dL 65-110 N BLOOD UREA NITROGEN (test co de = BUN) 12 mg/dL 7-18 N GLOMERULAR FILTRATION RATE ( test code = GFR) 78 ml/min >60 N CREATININE (test code = CREAT) 0.9 mg/dL 0.5-1.0 N TOTAL PROTEIN (test code = PROT) 6.1 gm/dL 6.3-8.2 L ALBUMIN (test code = ALB) 2.5 gm/dL 3.4-4.8 L CALCIUM (test code = CA) 9.0 mg/dL 8.4-10.2 N BILIRUBIN TOTAL (test code = BILT) 0.2 mg/dL 0.2-1.0 N SGOT/AST (test code = AST) 22 units/L 15-37 N SGPT/ALT (test code = ALT) 13 units/L 12-78 N ALKALINE PHOSPHATASE TOTAL ( test code = ALKP) 228 units/L 46-116 H URINALYSIS [id number] 09:49:00* Test Item Value Reference Range Interpretation Comme nts UA COLOR (test code = COLU) YELLOW UA APPEARANCE (test code = APPU) CLEAR UA GLUCOSE DIPSTICK (test code = DGLUU) NEGATIV E UA BILIRUBIN DIPSTICK (test code = BILU) NEGATIVE UA KETONE DIPSTICK (test code = KETU) NEGATIVE UA SPECIFIC GRAVITY (test code = SGU) 1.001-1.0 35 UA BLOOD DIPSTICK (test code = DEVIN) NEGATIVE UA PH DIPSTICK (test code = KIMBERLEE) 5-9 UA PROTEIN DIPSTICK (test code = PROU) NEGATIVE UA UROBILINIOGEN DIPSTICK (t est code = URO) mg/dL NEG UA NITRITE DIPSTICK (test code = HALINA) NEGATIVE UA LEUKOCYTE ESTERASE DIPSTI CK (test code = LEUU) NEG UA WBC (test code = WBCU) #/hpf NONE SEEN UA EPITHELIAL CELLS (test code = EPIU) #/HPF RARE-FEW URINE SAMPLE: CLEAN CATCHUR PROTEIN/CREATININE [id number] 09:49:00* Test Item Value Reference Range Interpretation Comme nts UR PROTEIN RANDOM (test code = PROTU) 367.2 mg/dL UR CREATININE RANDOM (test code = CREATU) 222.3 mg/dL PROTEIN/CREATININE RATIO (test code = P/CRATIO) 1651.8 mg/gcrea <200 H URINE SAMPLE: CLEAN CATCH Notes Date/Time Note Provider Source 2023-10-12 19:32:00 [facility] ([facility]) OB Disch REPORT#:[id number] REPORT STATUS: Signed REPORT INITIALIZATION DATE:10/12/23 TIME: 1931 PATIENT: STEFFEN PARMAR UNIT #: [id number] ROOM/BED: [address] : 99 AGE: 23 SEX: F ATTEND: Cayetano Herbert MD ADM AUTHOR: Caeytano Herbert MD REPT SERVICE DT/TIME: 10/12/231931 * ALL edits or amendments must be made on the electronic/computer document * Subjective Subjective Admission EGA: Weeks: 38 Days: 5 EGA at delivery (wks/days): 38 weeks Status/day: post Patient reports: Patient reports: Yes: normal lochia, pain management effective, tolerating po well, voiding well, voiding without pain, tolerating ambulation. No: complaints, bowel movement, nausea, vomiting, excessive bleeding, abdominal pain. Nursing reports: Nursing reports: No: complaints. Objective General VS: Vital Signs Date Temp Pulse Resp B/P B/P Mean Pulse Ox FiO2 10/11-10/12 97.6-98.1 61-87 16-20 104-132/62-76 94.0 99 Last Documented: Result Date Time B/P 118/62 10/12 120 Temp 98.1 10/12 120 Pulse 67 10/12 120 Resp 20 10/12 120 Pulse Ox 99 10/12 0526 B/P Mean 94.0 10/11 1941 PATIENT WEIGHT: Weight (lb): Weight (oz): Weight (kg): [id number] Physical Exam Cardiac: normal rhythm Lungs: clear to auscultation Neuro: Exam: alert, oriented x3, normal speech Abdomen: post gravid, soft, no abnormal tenderness, no guarding, no rebound tenderness, normoactive bowel sounds Uterus: involution appropriate, non-tender Fundus: firm, non-tender Lochia: normal Lower extremities: Edema: trace Results Findings/Data: Laboratory Tests Test Result Date Time Chemistry Sodium (135 - 145 mEq/L) 135 10/11 08 Potassium (3.5 - 5.0 mEq/L) 4.0 10/11 08 Chloride (100 - 115 mEq/L) 100 10/11 0851 Carbon Dioxide (22 - 31 mEq/L) 22 10/11 08 Anion Gap (10 - 20) 17.30 10/11 08 BUN (7 - 18 mg/dL) 9 10/11 08 Creatinine (0.5 - 1.0 mg/dL) 0.6 10/11 851 Glomerular Filtr Rate (>60 ml/min) 128 10/11 08 Glucose (65 - 110 mg/dL) 84 10/11 08 POC Glucose (65 - 110 mg/dL) 82 10/11 1302 Calcium (8.4 - 10.2 mg/dL) 9.5 10/11 08 Total Bilirubin (0.2 - 1.0 mg/dL) 0.3 10/11 851 AST (15 - 37 units/L) 20 10/11 08 ALT (12 - 78 units/L) 13 10/11 851 Total Alk Phosphatase (46 - 116 units/L) 214 H 10/11 08 Total Protein (6.3 - 8.2 gm/dL) 7.3 10/11 08 Albumin (3.4 - 4.8 gm/dL) 3.2 L 10/11 08 Hematology WBC (6.5 - 12.3 K/mm3) 9.5 11/850 RBC (3.51 - 4.69 M/mm3) 4.04 10/11 851 Hgb (10.1 - 13.8 g/dL) 9.8 L 10/12 2056 Hct (32.5 - 41.8 %) 29.2 L 10/12 2056 MCV (84.6 - 96.6 fL) 84.7 10/11 851 MCH (27.3 - 33.9 pg) 27.5 10/11 851 MCHC (32.0 - 34.2 gm/dL) 32.5 10/11 851 RDW (12.2 - 16.3 %) 14.1 10/11 851 Plt Count (134 - 363 K/mm3) 186 10/11 851 MPV (9.2 - 12.7 fL) 12.7 10/11 851 Neut % (Auto) (57.9 - 77.3 %) 61.7 10/11 851 Lymph % (Auto) (14.5 - 29.7 %) 27.2 10/11 851 [place] % (Auto) (3.6 - 10.2 %) 9.8 10/11 851 Eos % (Auto) (0.0 - 3.0 %) 0.8 10/11 851 Baso % (Auto) (0.1 - 0.9 %) 0.2 10/11 851 Neut # (Auto) (K/mm3) 5.8 10/11 851 Lymph # (Auto) (K/mm3) 2.6 10/11 851 [place] # (Auto) (K/mm3) 0.9 10/11 851 Eos # (Auto) (K/mm3) 0.08 10/11 851 Baso # (Auto) (K/mm3) 0.0 10/11 851 Immature Plt Fraction (0.0 - 10.8 %) 13.0 H 10/11 851 Serology Treponema pallidum Ab (NONREACTIVE) NONREACTIVE 10/10 2200 Hep Bs Antigen (NONREACTIVE) NONREACTIVE 10/10 2200 Hepatitis C Antibody (NONREACTIVE) NONREACTIVE 10/10 2200 Hep C Ab Signal/Cutoff (<0.80) 0.14 10/10 2200 HIV 1 2 Antibody (NONREACTIVE) NONREACTIVE 10/10 2200 Discharge Summary General Problem List/A P: 1. Gestational diabetes 2. Maternal obesity affecting , antepartum Hospital course: spontaneous vag delivery, epidural anesthesia Procedures: spontaneous vaginal deliv Discharge to: Home/Self Care Discharge diagnosis: full-term uncomp delivery, gestational diabetes Baby A: Vaginal delivery: spontaneous status: live born Gender: male 1 minute: 8 5 minutes: 9 Anomalies: none noted Vaginal packing at delivery: No Discharge Instructions Diet: Regular Additional discharge routines: Attending Follow-Up Discharge meds: Continue taking these medications: PNV WITH CA/IRON/FA/DHA (PRENATE ESSENTIAL) 28 MG IRON-1 MG-300 MG CAP 1 CAPSULE ORAL DAILY. CETIRIZINE (ZyrTEC) 5 MG TAB 5 MILLIGRAM ORAL EVERY 24 HOURS. Start taking the following new medications: IBUPROFEN (MOTRIN) 600 MG TAB 800 MILLIGRAM ORAL EVERY 8 HR NEEDED. as needed for PAIN SCALE 1-3 (USE 2ND) Qty = 30 No Refills DOCUSATE SODIUM (COLACE) 100 MG CAP 100 MILLIGRAM ORAL BEDTIME. as needed for constipation Qty = 30 No Refills Prescriptions: e-prescribe Add'l Follow-up Appointments Attending Physician: Attending Physician: Cayetano Herbert MD Attending physician follow up timeframe: In 3-4 weeks Special instructions: pelvivc rest x 6 weeks at 0811 RPT #:[id number] END OF REPORT [facility] 2023-10-11 17:42:00 [facility] ([facility]) OB Delivery Note REPORT#:[id number] REPORT STATUS: Signed REPORT INITIALIZATION DATE:10/11/23 TIME: 1741 PATIENT: STEFFEN PARMAR UNIT #: [id number] ROOM/BED: [address] : 99 AGE: 23 SEX: F ATTEND: Cayetaon Herbert MD ADM AUTHOR: Cayetano Herbert MD REPT SERVICE DT/TIME: 10/11/231741 * ALL edits or amendments must be made on the electronic/computer document * OB Delivery Nursing Documentation Review Nursing data: The data set between the solid lines has been imported from nursing documentation. Any exceptions have been noted below under Provider comments. _ ROM date: ROM time: Membranes rupture method: Amniotic fluid color: Amniotic fluid amount: Steroids prior to arrival: Antibiotic prophylaxis given: Post hemorrhage risk score: Delivery date infant A: Delivery time infant A: Birthweight (gm) A: Weight (lb) A: Weight (oz) A: Gender A: 1 minute A: 5 minutes A: 10 minutes infant A: Cord pH obtained A: Vacuum time infant A: Vacuum # pulls A: Vacuum # popoffs infant A: QBL at delivery: __ Provider comments on imported nursing data: [] Pre-delivery GBS status: GBS status: negative evaluation at delivery: NRP certified personnel Admission EGA: Weeks: 38 Days: 5 EGA at delivery (wks/days): 38 weeks Admission indication: IOL for GDM Blood Loss/Details Blood loss at delivery: <1K: no sx hypovol=no hem, no more than expected Baby A Information Baby A information Delivery date: 10/11/23 Delivery time: 1714 status: live born Wt of baby: not yet available Gender: male 1 minute: 8 5 minutes: 9 Presentation: vertex Anomalies: none noted ABG details Baby A Cord blood gases: not collected Nuchal cord Baby A Nuchal cord: no Vaginal Delivery Vaginal Delivery Vaginal delivery: Labor: induced Medications/Devices used: oxytocin, cytotec, cook balloon Vaginal delivery: spontaneous Amniotic fluid: clear Anesthesia type: epidural anesthesia Episiotomy: none Episiotomy repair: not applicable Laceration repair: yes Placenta: intact Post delivery meds used: oxytocin Count: correct Vaginal packing: No Mother's condition: mother stable 's condition: stable in room Extraction details OVD performed: no Shoulder dystocia present: no Additional comments: Arrived to the room after delivery of infant and placenta, delivered by OB hospitalist at 17:14 I arrived at 17:30 Upon arrival, mother and infant stable in kate Please see hospitalist note for delivery details at 1744 RPT #:[id number] END OF REPORT [facility] 2023-10-11 05:45:00 [facility] ([facility] OB Intrapart Prog Note REPORT#:[id number] REPORT STATUS: Signed REPORT INITIALIZATION DATE:10/11/23 TIME: 544 PATIENT: STEFFEN PARMAR UNIT #: [id number] ROOM/BED: [address] : 99 AGE: 23 SEX: F ATTEND: Cayetano Herbert MD ADM AUTHOR: Cayetano Herbert MD REPT SERVICE DT/TIME: 10/11/23 0545 * ALL edits or amendments must be made on the electronic/computer document * Subjective Subjective Admission EGA (wks/days): 38 weeks Patient reports: Patient reports: Yes normal movement, Yes coping well w/o pain meds, No complaints, No leaking fluid, No contractions Nursing reports: Nursing reports: No complaints Objective Nursing Documentation Review Nursing data: The data set between the solid lines has been imported from nursing documentation. Any exceptions have been noted below under Provider comments. __ ROM date: ROM time: __ Provider comments on imported nursing data: [] General VS: Last Documented: Result Date Time B/P Mean 84.0 10/11 316 B/P 124/58 10/11 316 Temp 97.6 10/11 316 Pulse 68 10/11 316 Resp 18 10/11 316 Vital Signs Date Temp Pulse Resp B/P B/P Mean Pulse Ox FiO2 10/10-10/11 97.6-98.4 68-101 18 110-133/56-72 74.0-84.0 PATIENT WEIGHT: Weight (lb): Weight (oz): Weight (kg): 90.247270 Objective Cervical/ exam: Dilatation (cm): 1 Effacement (%): 50 station: - 3 Uterine activity: Monitor: toco Frequency (description): irregular Procedures: speculum exam (cook balloon placement), cook balloon placed with use of sterile speculum uterine balloon inflted to 70 c, vaginal to 20 cc pt tolerated well FHR Evaluation Baby A: Baby A baseline: 130 bpm Baby A variability: moderate 6-25 bpm Baby A accelerations: 15 X 15 Baby A decelerations: none Baby A FHR category: category 1 Result Findings/Data: Laboratory Tests: 10/10 10/10 2200 2135 Chemistry Glucose (65 - 110 mg/dL) 99 POC Glucose (65 - 110 mg/dL) 86 Hematology WBC (6.5 - 12.3 K/mm3) 9.6 RBC (3.51 - 4.69 M/mm3) 3.69 Hgb (10.1 - 13.8 g/dL) 10.4 Hct (32.5 - 41.8 %) 31.5 L MCV (84.6 - 96.6 fL) 85.4 MCH (27.3 - 33.9 pg) 28.2 MCHC (32.0 - 34.2 gm/dL) 33.0 RDW (12.2 - 16.3 %) 13.9 Plt Count (134 - 363 K/mm3) 187 MPV (9.2 - 12.7 fL) 13.4 H Neut % (Auto) (57.9 - 77.3 %) 66.5 Lymph % (Auto) (14.5 - 29.7 %) 21.6 [place] % (Auto) (3.6 - 10.2 %) 10.8 H Eos % (Auto) (0.0 - 3.0 %) 0.5 Baso % (Auto) (0.1 - 0.9 %) 0.2 Neut # (Auto) (K/mm3) 6.4 Lymph # (Auto) (K/mm3) 2.1 [place] # (Auto) (K/mm3) 1.0 Eos # (Auto) (K/mm3) 0.05 Baso # (Auto) (K/mm3) 0.0 Immature Plt Fraction (0.0 - 10.8 %) 13.9 H Serology Treponema pallidum Ab (NONREACTIVE) NONREACTIVE Hep Bs Antigen (NONREACTIVE) NONREACTIVE Hepatitis C Antibody (NONREACTIVE) NONREACTIVE Hep C Ab Signal/Cutoff (<0.80) 0.14 HIV 1 2 Antibody (NONREACTIVE) NONREACTIVE Diagnosis, Assessment Plan Problem List/A P: 1. Gestational diabetes 2. Maternal obesity affecting , antepartum Free Text A P: 23 y/o @ 38 6/7 weeks, admitted for IOL due to GDM: -s/p 2 doses of cytotec -cook balloon palced now -glucose values stable, continue to follow -fgetal tracing cat 1 at 0557 RPT #:[id number] END OF REPORT [facility] 2023-10-10 22:25:00 [facility] ([facility]) OB Admission / H P REPORT#:[id number] REPORT STATUS: Signed REPORT INITIALIZATION DATE:10/10/23 TIME: 2224 PATIENT: STEFFEN PARMAR UNIT #: [id number] ROOM/BED: [address] : 99 AGE: 23 SEX: F ATTEND: Cayetano Herbert MD ADM AUTHOR: Cayetano Herbert MD REPT SERVICE DT/TIME: 10/10/23 1725 * ALL edits or amendments must be made on the electronic/computer document * OB History Nursing Documentation Review Nursing data: The data set between the solid lines has been imported from nursing documentation. Any exceptions have been noted below under Provider comments. Current data Steroids prior to arrival: ROM date: ROM time: EDC date: Gestational age (labor triage): Post hemorrhage risk score: Prior history : Para: Term: : Abortions spontaneous: Abortions induced: Living children: Ectopic: Stillbirths: Live births: deaths: Number of previous C/S: Reported maternal labs/data Blood type: Rh type: Positive Rubella: Hepatitis B: Negative HIV exposure test: VDRL: Group B beta strep: Negative Rho(D) immune globulin this preg: Monitor mode - UA: Feeding preference: Provider comments on imported nursing data: [] Chief complaint: scheduled induction HPI: Pt is a 23 y/o @ 38 5/7 weeks, admitted for scheduled IOL. Pt eith gestational diabetes, previously rec's for control with Metformin, but currently diet controlled. Pt has been followed by MFM throughout Pt notes +FM, active. She denies VB, LOF or regular, painful CTX's history: : 2 Term: 1 Living children: 1 Previous : none Current : Admission EGA (weeks) 38 Admission EGA (days) 5 Conditions of : diabetes - gestational Labs: Blood type: O Rh: positive Rubella: immune Hepatitis B: negative HIV: negative STD: negative Syphilis: currently negative GBS: negative Genetic testing: negative NIPT negative carrier screening negative AFP Notes: SAM 10/03/2023: cephalic anterior placenta MICHAEL 14.4 cm -last EFW 82%tile rec's for delivery 37-39 weeks Past History Additional Medical History: 1. 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 Additional Family History non-contributory Alcohol Use Denies EtOH use Drug Use Denies recreational drugs Smoking status for patients 13 years old or older: Former Smoker Other Social History Employed, Good social support Medications: Home Medications: CETIRIZINE (ZyrTEC) 5 MG PO Q24H PNV WITH CA/IRON/FA/DHA (PRENATE ESSENTIAL) 1 CAP PO DAILY Allergies: Coded Allergies: No Known Allergies (10/10/23) Review of Systems All systems rev neg: except as marked Objective General VS: Last Documented: Result Date Time B/P 133/72 10/10 2111 Temp 98.4 10/10 2111 Pulse 101 10/10 2111 Resp 18 10/10 2111 Vital Signs Date Temp Pulse Resp B/P B/P Mean Pulse Ox FiO2 10/10 98.4 101 18 133/72 PATIENT WEIGHT: Weight (lb): Weight (oz): Weight (kg): 90.758954 Physical Exam Uterine activity: Monitor: toco Frequency (description): irregular Cervical/ exam: Dilatation (cm): 1 Effacement (%): 50 station: - 3 Membranes: Membranes: Intact Baby A: Baby A baseline: 125 bpm Baby A variability: moderate 6-25 bpm Baby A accelerations: 15 X 15 Baby A decelerations: none Baby A FHR category: category 1 Results Findings/Data: Laboratory Tests: 11/20 11/20 2200 2135 Chemistry POC Glucose (65 - 110 mg/dL) 86 Hematology WBC (6.5 - 12.3 K/mm3) 9.6 RBC (3.51 - 4.69 M/mm3) 3.69 Hgb (10.1 - 13.8 g/dL) 10.4 Hct (32.5 - 41.8 %) 31.5 L MCV (84.6 - 96.6 fL) 85.4 MCH (27.3 - 33.9 pg) 28.2 MCHC (32.0 - 34.2 gm/dL) 33.0 RDW (12.2 - 16.3 %) 13.9 Plt Count (134 - 363 K/mm3) 187 MPV (9.2 - 12.7 fL) 13.4 H Neut % (Auto) (57.9 - 77.3 %) 66.5 Lymph % (Auto) (14.5 - 29.7 %) 21.6 [place] % (Auto) (3.6 - 10.2 %) 10.8 H Eos % (Auto) (0.0 - 3.0 %) 0.5 Baso % (Auto) (0.1 - 0.9 %) 0.2 Neut # (Auto) (K/mm3) 6.4 Lymph # (Auto) (K/mm3) 2.1 [place] # (Auto) (K/mm3) 1.0 Eos # (Auto) (K/mm3) 0.05 Baso # (Auto) (K/mm3) 0.0 Immature Plt Fraction (0.0 - 10.8 %) 13.9 H Diagnosis, Assessment Plan Diagnosis, Assessment Plan Problem List/A P: 1. Gestational diabetes 2. Maternal obesity affecting , antepartum Free Text A P: 23 y/o @ 38 5/ wbu (8) presenting for scheduled IOL, history of GDM: -plan cervical ripening with Cytotec -also plan use of cook balloon -glucose stable on admission, will follow closely - surveillance overall reassuring at 0545 RPT #:[id number] END OF REPORT [facility] 2023-09-24 19:56:00 [facility] ([facility]) STAR Evaluation Note REPORT#:[id number] REPORT STATUS: Signed REPORT INITIALIZATION DATE:09/24/23 TIME: 1955 PATIENT: STEFFEN PARMAR UNIT #: [id number] ROOM/BED: : 99 AGE: 23 SEX: F ATTEND: Cayetano Herbert MD ADM DT: AUTHOR: Modesto Goff MD REPT SERVICE DT/TIME: 09/24/231955 * ALL edits or amendments must be made on the electronic/computer document * STAR History HPI: 23 yo at 36w3d presents with ctx had a ORTEGA earlier which improved and has soem back pain. had preeclampsia after delivery at 39w5d last and was afraid of BP at home that she checked- 129/73 at home- due to ORTEGA. has regular pnc with Dr Herbert PMH: none PSH: none x1 Meds: pnv nkda Allergies Coded Allergies: No Known Allergies (09/06/23) Objective General VS: Last Documented: Result Date Time B/P Mean 83.0 09/24 1452 B/P 121/59 11 1452 Pulse 96 09/24 1452 Pulse Ox 99 09/24 1446 Vital Signs Date Temp Pulse Resp B/P B/P Mean Pulse Ox FiO2 09/24 96-105 121-124/59 83.0-85.0 99 PATIENT WEIGHT: Weight (lb): 199 Weight (oz): Weight (kg): 90.662504 Physical Exam HEENT: normocephalic w/o injury Cardiac: regular rate and rhythm, no clinically sig murmur, no edema peripherally Lungs: unlabored breathing Abdomen: gravid, soft, no abnormal tenderness, no guarding Uterine activity: Monitor: toco Frequency (description): none Cervical/ exam: Dilatation (cm): 0 - closed Effacement (%): 0 station: - 4 FHR evaluation: Baseline: 135 bpm Variability: moderate 6-25 bpm Accelerations: 15 X 15 Decelerations: none FHR category: category 1 Diagnosis, Assessment Plan Diagnosis, Assessment Plan Free Text A P: 23 yo with r/o PIH and labor Serial BP are all normal. reassurance given. precautions to return for BP 155/100. not on ASA 81mg. labor r/o with closed cervix. no evidence of ctx on monitor. dc home with labor precautions. at 2000 RPT #:[id number] END OF [facility]PORT [facility] 2021-06-16 18:13:00 [facility] ([facility]) OB Disch REPORT#:[id number] REPORT STATUS: Signed DATE:06/16/21 TIME: 1812 PATIENT: STEFFEN SOFIA UNIT #: [id number] ROOM/BED: [address] : 99 AGE: 21 SEX: F ATTEND: Cayetano Herbert MD ADM AUTHOR: Cayetano Herbert MD * ALL edits or amendments must be made on the electronic/computer document * Subjective Subjective Admission EGA: Weeks: 39 Days: 4 EGA at delivery (wks/days): 39 weeks Status/day: post , PPD # 2 Patient reports: Patient reports: Yes: normal lochia, pain management effective, tolerating po well, voiding well, flatus. No: complaints, nausea, vomiting, excessive bleeding, abdominal pain, perineal pain, difficulty nursing, headache, blurred vision. Nursing reports: Nursing reports: No: complaints. Comments: Pt denies fever or chills. She reports feeling "so much better", and strongly desires discharge to home Objective General VS: Vital Signs Date Temp Pulse Resp B/P B/P Mean Pulse Ox FiO2 06/15-06/16 97.8-98.8 85-112 16-20 122-149/66-92 87.0-115.0 96-100 Last Documented: Result Date Time Pulse Ox 99 06/16 165 B/P 140/92 06/16 165 Temp 98.7 06/16 1656 Pulse 99 06/16 1656 Resp 18 06/16 1656 B/P Mean 102.0 06/16 0600 PATIENT WEIGHT: Weight (lb): 191 Weight (oz): Weight (kg): 86.636 Physical Exam Breasts: Breasts: filling, non-tender, soft Cardiac: S1S2 tachycardia Lungs: clear to auscultation Neuro: Exam: alert, oriented x3, normal speech, normal gait DTR's (lower extr): normal 1-2+, no clonus Abdomen: post gravid, soft, no abnormal tenderness, no guarding, no rebound tenderness, normoactive bowel sounds Uterus: involution appropriate, non-tender Fundus: firm, below the umbilicus, non-tender Lochia: normal Episiotomy or laceration: well approximated edges Vulva/Perineum: no hematoma Lower extremities: Edema: 1+ pitting Calf tenderness: negative Results Findings/Data: Laboratory Tests: 06/16 06/15 06/15 06/15 0645 0545 0530 0530 Chemistry Sodium (135 - 145 mEq/L) 139 142 Potassium (3.5 - 5.0 mEq/L) 4.1 4.3 Chloride (100 - 115 mEq/L) 104 110 Carbon Dioxide (22 - 31 mEq/L) 26 25 Anion Gap (10 - 20) 13.10 11.00 BUN (7 - 18 mg/dL) 7 10 Creatinine (0.5 - 1.0 mg/dL) 1.0 1.0 Glomerular Filtr Rate (>60 ml/min) 69 69 Glucose (65 - 110 mg/dL) 109 78 Lactic Acid (0.5 - 2.2 MMOL/L) 1.1 Calcium (8.4 - 10.2 mg/dL) 7.8 L 8.2 L Total Bilirubin (0.2 - 1.0 mg/dL) 0.2 0.2 AST (15 - 37 units/L) 21 28 ALT (12 - 78 units/L) 13 15 Total Alk Phosphatase (46 - 116 units/L) 176 H 168 H Total Protein (6.3 - 8.2 gm/dL) 6.0 L 5.1 L Albumin (3.4 - 4.8 gm/dL) 2.4 L 2.1 L Coagulation PT (10.1 - 12.3 secs) 10.4 INR 0.94 PTT ([place]) (22 - 38 secs) 31.3 Hematology WBC (6.5 - 12.3 K/mm3) 13.6 H 20.5 *H RBC (3.51 - 4.69 M/mm3) 3.09 L 2.82 L Hgb (10.1 - 13.8 g/dL) 9.0 L 8.2 L Hct (32.5 - 41.8 %) 27.4 L 25.1 L MCV (84.6 - 96.6 fL) 88.7 89.0 MCH (27.3 - 33.9 pg) 29.1 29.1 MCHC (32.0 - 34.2 gm/dL) 32.8 32.7 RDW (12.2 - 16.3 %) 13.5 13.3 Plt Count (134 - 363 K/mm3) 173 128 L MPV (9.2 - 12.7 fL) 12.8 H 14.0 H Neut % (Auto) (57.9 - 77.3 %) 74.8 76.5 Lymph % (Auto) (14.5 - 29.7 %) 16.1 14.7 [place] % (Auto) (3.6 - 10.2 %) 6.8 7.8 Eos % (Auto) (0.0 - 3.0 %) 1.3 0.3 Baso % (Auto) (0.1 - 0.9 %) 0.3 0.2 Neut # (Auto) (K/mm3) 10.1 15.7 Lymph # (Auto) (K/mm3) 2.2 3.0 [place] # (Auto) (K/mm3) 0.9 1.6 Eos # (Auto) (K/mm3) 0.18 0.06 Baso # (Auto) (K/mm3) 0.0 0.0 Immature Plt Fraction (0.0 - 10.8 %) 23.1 H Urines Urine Color (YELLOW) COLORLESS Urine Appearance (CLEAR) CLEAR Urine pH (5 - 9) 6.0 Ur Specific Candor (1.001 - 1.035) 1.004 Urine Protein (NEG) NEGATIVE Urine Glucose (UA) (NEG) NEGATIVE Urine Ketones (NEG) NEGATIVE Urine Blood (NEG) 2+ H Urine Nitrite (NEG) NEG Urine Bilirubin (NEG) NEGATIVE Urine Urobilinogen (NEG mg/dL) NEGATIVE Ur Leukocyte Esterase (NEG) NEG Urine RBC (NONE SEEN #/hpf) 6-10 H Urine WBC (NONE SEEN #/hpf) 3-5 H Ur Epithelial Cells (RARE - FEW #/HPF) RARE Urine Bacteria (RARE - FEW /HPF) RARE Urine Mucus (NONE SEEN) RARE 06/14 2300 Hematology WBC (6.5 - 12.3 K/mm3) 18.0 H RBC (3.51 - 4.69 M/mm3) 2.95 L Hgb (10.1 - 13.8 g/dL) 8.6 L Hct (32.5 - 41.8 %) 26.6 L MCV (84.6 - 96.6 fL) 90.2 MCH (27.3 - 33.9 pg) 29.2 MCHC (32.0 - 34.2 gm/dL) 32.3 RDW (12.2 - 16.3 %) 13.2 Plt Count (134 - 363 K/mm3) 104 L MPV (9.2 - 12.7 fL) 14.1 H Neut % (Auto) (57.9 - 77.3 %) 77.5 H Lymph % (Auto) (14.5 - 29.7 %) 14.3 L [place] % (Auto) (3.6 - 10.2 %) 7.4 Eos % (Auto) (0.0 - 3.0 %) 0.2 Baso % (Auto) (0.1 - 0.9 %) 0.2 Neut # (Auto) (K/mm3) 14.0 Lymph # (Auto) (K/mm3) 2.6 [place] # (Auto) (K/mm3) 1.3 Eos # (Auto) (K/mm3) 0.04 Baso # (Auto) (K/mm3) 0.0 Immature Plt Fraction (0.0 - 10.8 %) 24.3 H Microbiology: Date/Time Procedure - Status Source Growth 06/15 545 Blood Culture - RES BLOOD 06/15 0545 Blood Culture Gram Stain - RES BLOOD 06/15 0530 Blood Culture - RES BLOOD 06/15 0530 Blood Culture Gram Stain - RES BLOOD Discharge Summary General Free Text A P: 21 y/o s/p PPD # 2: 1. PreEclampsia with Severe features: -admitted for IOL due to PreEclampsia, uncomplicated , followed by labile BP and decrease in plt in 24 hr pp period -s/p Magnesium Sulfate x 24 hr with diuresis -BP stable without meds -denies toxemia symptoms -plan f/u in office for repeat BP check and labs on 2. IAI: -sepsis/SIRS protocol initiated based on meeting > 2 criteria -treated with IV Gent/Clinda x 24 hr, followed by IV Zosyn and Gent x 24 hr -WBC normalized, pt afebrile -clinically improved 3. Anemia: -acute blood loss anemia -plan oral iron with stool softener Hospital course: induction of labor, spontaneous vag delivery Discharge condition: stable Discharge to: Home/Self Care Discharge management: greater than 30 mins Baby A: Vaginal delivery: spontaneous status: live born Gender: male 1 minute: 8 5 minutes: 9 Anomalies: none noted Vaginal packing at delivery: No Discharge Instructions Instructions: routine instr sheet given, specific instr as noted, call if T > 100.4 F Call if SBP >160 or DBP > 100 RTC 2 days for BP check and repeat labs pelvic rest Diet: Regular Additional discharge routines: PCP Follow-Up Discharge meds: Start taking the following new medications: IBUPROFEN (MOTRIN) 800 MG TAB 800 MILLIGRAM ORAL EVERY 8 HR NEEDED. as needed for MILD PAIN (SCALE 1-3 ) Qty = 30 No Refills DOCUSATE SODIUM (COLACE) 100 MG CAP 100 MILLIGRAM ORAL BEDTIME. Qty = 30 No Refills FERROUS SULFATE (FEOSOL) 325 MG TAB 325 MILLIGRAM ORAL TWICE DAILY. Qty = 60 No Refills Prescriptions: e-prescribe Add'l Follow-up Appointments PCP follow-up: PCP: Cayetano Herbert MD PCP follow up timeframe: In 2 days Special instructions: pelvic rest, ER warnings, call if T > 100.4, BP > 160/100 or toxemia symptoms at 1820 RPT #:[id number] END OF REPORT [facility] 2021-06-15 15:07:00 [facility] ([facility]) OB Postpart Progr Note REPORT#:[id number] REPORT STATUS: Signed DATE:06/15/21 TIME: 1507 PATIENT: STEFFEN SOFIA UNIT #: [id number] ROOM/BED: 2218-A : 99 AGE: 21 SEX: F ATTEND: Cayetano Herbert MD ADM AUTHOR: Cayetano Herbert MD * ALL edits or amendments must be made on the electronic/computer document * Subjective Subjective Admission EGA: Weeks: 39 Days: 4 EGA at delivery (wks/days): 39 weeks Status/day: post , PPD # 1 Comments: Pt reports feeling well. She denies fever or chills, denies palpitations Pt denies toxemia symptoms She is Pt notes mild discomfort from biggs catheter Objective General VS: Vital Signs Date Temp Pulse Resp B/P B/P Mean Pulse Ox FiO2 06/15 97.5-98.6 82-125 18-21 92-142/48-88 93-99 Last Documented: Result Date Time Pulse Ox 99 06/15 1300 B/P 138/87 06/15 1300 Pulse 95 06/15 1300 Resp 20 06/15 1300 Temp 98.0 06/15 1200 B/P Mean 108.0 06/14 1107 PATIENT WEIGHT: Weight (lb): 191 Weight (oz): Weight (kg): 86.636 Medications: Active Meds + DC'd Last 24 Hrs Gentamicin Sulfate 100 ML Q24H IV Multivi/Iron Carb/Fe Sulf/FA/Prenat 1 TAB DAILY PO Calcium Gluconate 1,000 MG BOLUS ASDIR PRN IV Magnesium Sulfate/Dextrose 100 ML BOLUS ONCE ONE IV (DC) Undefined Medication 500 ML ASDIR IV (CKD) Piperacillin Sod/Tazobactam Sod 3.375 GM Q6HR IV Sodium Chloride 100 ML Sodium Chloride 2,599.084 ML ONCE IV (DC) Docusate Sodium 200 MG BEDTIME PO Clindamycin Phosphate 50 ML Q8H IV (DC) Acetaminophen 650 MG Q4H PRN PRN PO Acetaminophen/Codeine Phosphate 1 TAB Q4H PRN PRN PO Al Hydrox/Mg Hydrox/Simethicone 30 ML Q4H PRN PRN PO Benzocaine 1 APPLIC DAILY PRN PRN TOPICAL (CKD) Benzocaine/Menthol 1 LOZENGE ASDIR MM (CKD) Bisacodyl 10 MG DAILY PRN PRN RECTAL Diphenhydramine HCl 25 MG Q6H PRN PRN PO Diphtheria/Pertussis/Tetanus Vacc 0.5 ML BEFORE DISCHG IM Gentamicin Sulfate 100 ML Q24H IV (DC) Hydrocodone Bitart/Acetaminophen 1 TAB Q4H PRN PRN PO Hydrocortisone/Pramoxine 1 GM ASDIR PRN TOPICAL (CKD) Ibuprofen 800 MG Q8H PRN PRN PO Lactated Ringer's 1,000 ML ASDIR IV Magnesium Hydroxide 30 ML BID PRN PRN PO Measles/Mumps/Rubella Vaccine Live 1 VIAL BEFORE DISCHG PRN SUBQ Methylergonovine Maleate 0.2 MG ASDIR PRN IM Ondansetron HCl 4 MG Q6H PRN PRN PO Oxytocin 500 ML ASDIR IV (DC) Polyethylene Glycol 17 GM DAILY PRN PRN PO Promethazine HCl 12.5 MG Q4H PRN PRN PO Simethicone 160 MG Q4H PRN PRN PO Tranexamic Acid 1,000 MG ASDIR PRN IV Sodium Chloride 90 ML Witch Lise/Glycerin 1 APPLIC ASDIR PRN TOPICAL Zolpidem Tartrate 5 MG BEDTIME PRN PRN PO Lactated Ringer's 2,000 ML ASDIR PRN IV Physical Exam Breasts: Breasts: filling, non-tender, soft Cardiac: S1S2 tachycardia Lungs: clear to auscultation Neuro: Exam: alert, oriented x3, normal speech, normal gait DTR's (lower extr): normal 1-2+, no clonus Abdomen: soft, no abnormal tenderness, no guarding, no fundal tenderness no suprapubic tenderness. 2-3 irregular border dark brown to black color nevus noted- concern for possible melanoma Uterus: firm, non-tender Fundus: firm, non-tender Lochia: normal Lacerations: Perineal laceration(s): 2nd Degree w/vag muscles, 2nd Degree w/binh muscles High vaginal laceration: no Episiotomy or laceration: no drainage noted Vulva/perineum: no hematoma CVA tenderness: none Lower extremities: Edema: 2+ pitting Calf tenderness: negative Result Findings/data: Laboratory Tests: 06/15 06/15 06/15 06/14 0545 0530 0530 2300 Chemistry Sodium (135 - 145 mEq/L) 142 Potassium (3.5 - 5.0 mEq/L) 4.3 Chloride (100 - 115 mEq/L) 110 Carbon Dioxide (22 - 31 mEq/L) 25 Anion Gap (10 - 20) 11.00 BUN (7 - 18 mg/dL) 10 Creatinine (0.5 - 1.0 mg/dL) 1.0 Glomerular Filtr Rate (>60 ml/min) 69 Glucose (65 - 110 mg/dL) 78 Lactic Acid (0.5 - 2.2 MMOL/L) 1.1 Calcium (8.4 - 10.2 mg/dL) 8.2 L Total Bilirubin (0.2 - 1.0 mg/dL) 0.2 AST (15 - 37 units/L) 28 ALT (12 - 78 units/L) 15 Total Alk Phosphatase (46 - 116 units/L) 168 H Total Protein (6.3 - 8.2 gm/dL) 5.1 L Albumin (3.4 - 4.8 gm/dL) 2.1 L Coagulation PT (10.1 - 12.3 secs) 10.4 INR 0.94 PTT ([place]) (22 - 38 secs) 31.3 Hematology WBC (6.5 - 12.3 K/mm3) 20.5 *H 18.0 H RBC (3.51 - 4.69 M/mm3) 2.82 L 2.95 L Hgb (10.1 - 13.8 g/dL) 8.2 L 8.6 L Hct (32.5 - 41.8 %) 25.1 L 26.6 L MCV (84.6 - 96.6 fL) 89.0 90.2 MCH (27.3 - 33.9 pg) 29.1 29.2 MCHC (32.0 - 34.2 gm/dL) 32.7 32.3 RDW (12.2 - 16.3 %) 13.3 13.2 Plt Count (134 - 363 K/mm3) 128 L 104 L MPV (9.2 - 12.7 fL) 14.0 H 14.1 H Neut % (Auto) (57.9 - 77.3 %) 76.5 77.5 H Lymph % (Auto) (14.5 - 29.7 %) 14.7 14.3 L [place] % (Auto) (3.6 - 10.2 %) 7.8 7.4 Eos % (Auto) (0.0 - 3.0 %) 0.3 0.2 Baso % (Auto) (0.1 - 0.9 %) 0.2 0.2 Neut # (Auto) (K/mm3) 15.7 14.0 Lymph # (Auto) (K/mm3) 3.0 2.6 [place] # (Auto) (K/mm3) 1.6 1.3 Eos # (Auto) (K/mm3) 0.06 0.04 Baso # (Auto) (K/mm3) 0.0 0.0 Immature Plt Fraction (0.0 - 10.8 %) 23.1 H 24.3 H Urines Urine Color (YELLOW) COLORLESS Urine Appearance (CLEAR) CLEAR Urine pH (5 - 9) 6.0 Ur Specific Candor (1.001 - 1.035) 1.004 Urine Protein (NEG) NEGATIVE Urine Glucose (UA) (NEG) NEGATIVE Urine Ketones (NEG) NEGATIVE Urine Blood (NEG) 2+ H Urine Nitrite (NEG) NEG Urine Bilirubin (NEG) NEGATIVE Urine Urobilinogen (NEG mg/dL) NEGATIVE Ur Leukocyte Esterase (NEG) NEG Urine RBC (NONE SEEN #/hpf) 6-10 H Urine WBC (NONE SEEN #/hpf) 3-5 H Ur Epithelial Cells (RARE - FEW #/HPF) RARE Urine Bacteria (RARE - FEW /HPF) RARE Urine Mucus (NONE SEEN) RARE Microbiology: Date/Time Procedure - Status Source Growth 06/15 545 Blood Culture - RECD BLOOD 06/15 545 Blood Culture Gram Stain - RECD BLOOD 06/15 530 Blood Culture - RECD BLOOD 06/15 530 Blood Culture Gram Stain - RECD BLOOD Results: labs reviewed, EKG pending Diagnosis, Assessment Plan Diagnosis, Assessment Plan Free text A P: 21 y/o PPD # 1 s/p , Patient meets criteria for Sepsis defined as: Known or suspected infection with 2 or more signs of SIRS. Patient has a Lactic Acid <2. Assessment/Plan:: 1)Sepsis likely secondary to Intraamniotic Infection at delivery. (Time of Diagnosis:518) - Code Sepsis has been initiated. - Labs reviewed, lactic acid 1.1 on last check , IVF adjusted accordingly, decrease to 50 cc/h total - Patient has been treated with Clindamycin/Gentamycin since delivery. Pt has received all three doses of Clindamycin, now on Zosyn and Gentamyciin -Continue close observation, f/u cultures 2) preeclampsia with severe features: -on Magnesium for seizure prophylaxis - Strict I O; UOP 3000 cc thus far 3) continue routien post- care, consult completed today at 1515 RPT #:[id number] END OF REPORT [facility] 2021-06-15 13:58:00 [id number] [facility] [address], [place] [address] PATIENT NAME: STEFFEN SOFIA ADMIT DATE: 06/13/21 ACCOUNT NO: [id number] ROOM NO: [facility] AGE: 21 SEX: F ADMITTING PHYSICIAN: Cayetano Herbert MD ATTENDING PHYSICIAN: Cayetano Herbert MD Order: [id number] Test Reason : CODE SEPSIS PROTOCOL Test Date/Time Stamp: TueJun 15 2021 13:58:50 Blood Pressure : / mmHG Vent. Rate : 100 BPM Atrial Rate : 100 BPM P-R Int : 150 ms QRS Dur : 076 ms QT Int : 352 ms P-R-T Axes : 025 036 001 degrees QTc Int : 454 ms Normal sinus rhythm Nonspecific T wave abnormality Abnormal ECG No previous ECGs available Confirmed by HILDA FIELDS MD ([id number]) on 06/15/2021 10:42:32 PM Referred By: Cayetano Herbert Confirmed by:HILDA FIELDS MD at 2242 PATIENT NAME: STEFFEN SOFIA [facility] 2021-06-15 05:34:00 [facility] ([facility]) OB Postpart Progr Note REPORT#:[id number] REPORT STATUS: Signed DATE:06/15/21 TIME: 533 PATIENT: STEFFEN SOFIA UNIT #: [id number] ROOM/BED: [address] : [address] AGE: 21 SEX: F ATTEND: Cayetano Herbert MD ADM AUTHOR: Olga Lidia Doan MD * ALL edits or amendments must be made on the electronic/computer document * Subjective Subjective Admission EGA: Weeks: 39 Days: 4 EGA at delivery (wks/days): 39 weeks Comments: Called by RN stating request from Dr. Herbert to evaluate patient. SBARR given pt is complicated with preeclampsia PPD#1 s/p . AT delivery pt had temp 100.4F and persistant maternal tachycardia. pt did not have code sepsis called at time of delivery but some labs were ordered and pt started on CLINA/GENT. pt has received all doses of CLINDA per RN. RN calls stating pt started having chills and tachycardiac to 120s still and bp dropped to 92/48. pt bp range during admission typically 005-179-31-100s (mild range BP). repeat bp 167/109. pt states feels subjective fever/chills. no ORTEGA/change in vision/CP/palpitations/ sob/N/V/ruq pain/leg pain. + leg swelling. pt diuresing well. Objective Nursing Documentation Review Nursing data: The data set between the solid lines has been imported from nursing documentation. Any exceptions have been noted below under Provider comments. Feeding preference: Post hemorrhage risk score: Low Risk for Hemorrhage. Provider comments on imported nursing data: [] General VS: Vital Signs Date Temp Pulse Resp B/P B/P Mean Pulse Ox FiO2 06/14-06/15 97.5-100.4 82-134 18-21 92-154/48-10 94.0-125.0 7 Last Documented: Result Date Time Temp 97.5 06/15 0445 B/P 92/48 06/15 0440 Pulse 125 06/15 0440 Resp 21 06/15 0440 B/P Mean 108.0 06/14 1107 Pulse Ox 100 06/14 0413 PATIENT WEIGHT: Weight (lb): 191 Weight (oz): Weight (kg): 86.636 Medications: Active Meds + DC'd Last 24 Hrs Multivi/Iron Carb/Fe Sulf/FA/Prenat 1 TAB DAILY PO Calcium Gluconate 1,000 MG BOLUS ASDIR PRN IV Magnesium Sulfate/Dextrose 100 ML BOLUS ONCE ONE IV (DC) Undefined Medication 500 ML ASDIR IV (CKD) Piperacillin Sod/Tazobactam Sod 3.375 GM Q6HR IV Sodium Chloride 100 ML Sodium Chloride 2,599.084 ML ONCE IV (DC) Docusate Sodium 200 MG BEDTIME PO Bupivacaine HCl 30 ML .STK-MED ONE ZCHARGE (DC) Lidocaine/Epinephrine 20 ML .STK-MED ONE ZCHARGE (DC) Clindamycin Phosphate 50 ML Q8H IV (DC) Acetaminophen 650 MG Q4H PRN PRN PO Acetaminophen/Codeine Phosphate 1 TAB Q4H PRN PRN PO Al Hydrox/Mg Hydrox/Simethicone 30 ML Q4H PRN PRN PO Benzocaine 1 APPLIC DAILY PRN PRN TOPICAL (CKD) Benzocaine/Menthol 1 LOZENGE ASDIR MM (CKD) Bisacodyl 10 MG DAILY PRN PRN RECTAL Diphenhydramine HCl 25 MG Q6H PRN PRN PO Diphtheria/Pertussis/Tetanus Vacc 0.5 ML BEFORE DISCHG IM Gentamicin Sulfate 100 ML Q24H IV Hydrocodone Bitart/Acetaminophen 1 TAB Q4H PRN PRN PO Hydrocortisone/Pramoxine 1 GM ASDIR PRN TOPICAL (CKD) Ibuprofen 800 MG Q8H PRN PRN PO Lactated Ringer's 1,000 ML ASDIR IV Magnesium Hydroxide 30 ML BID PRN PRN PO Measles/Mumps/Rubella Vaccine Live 1 VIAL BEFORE DISCHG PRN SUBQ Methylergonovine Maleate 0.2 MG ASDIR PRN IM Ondansetron HCl 4 MG Q6H PRN PRN PO Oxytocin 500 ML ASDIR IV (DC) Polyethylene Glycol 17 GM DAILY PRN PRN PO Promethazine HCl 12.5 MG Q4H PRN PRN PO Simethicone 160 MG Q4H PRN PRN PO Tranexamic Acid 1,000 MG ASDIR PRN IV Sodium Chloride 90 ML Witch Lise/Glycerin 1 APPLIC ASDIR PRN TOPICAL Zolpidem Tartrate 5 MG BEDTIME PRN PRN PO Oxytocin 500 ML .STK-MED ONE INJ (DC) Dextrose/Lactated Ringer's 1,000 ML ASDIR IV (DC) Ephedrine Sulfate 10 MG ASDIR PRN IV (DC) Fentanyl Citrate 100 MCG ASDIR EPIDURAL (DC) Fentanyl/Bupivacaine HCl 150 ML ASDIR EPIDURAL (DC) Lactated Ringer's 250 ML ASDIR IV (DC) Ondansetron HCl 4 MG Q6H PRN PRN IV (DC) Pharmacy Profile Note 1 EA ONCE MISC (DC) Butorphanol Tartrate 1 MG Q4H PRN PRN IV (DC) Lactated Ringer's 2,000 ML ASDIR PRN IV Misoprostol 25 MCG Q4H PRN PRN VAGINAL (DC) Ondansetron HCl 4 MG Q6H PRN PRN IV (DC) Physical Exam Cardiac: S1S2 tachycardiac no murmur/rubs/gallops Lungs: clear to auscultation Neuro: Exam: alert, oriented x3, normal speech, normal gait DTR's (lower extr): normal 1-2+, no clonus Abdomen: soft, no abnormal tenderness, no guarding, normoactive bowel sounds, no fundal tenderness, no suprapubic tenderness. 2-3 irregular border dark brown to black color nevus noted- concern for possible melanoma Uterus: firm, non-tender Fundus: firm, non-tender Lochia: normal Lacerations: Perineal laceration(s): 2nd Degree w/vag muscles, 2nd Degree w/binh muscles High vaginal laceration: no Lower extremities: Edema: 2+ pitting Calf tenderness: negative Result Findings/data: Laboratory Tests: 06/15 06/15 06/15 06/14 0545 0530 0530 2300 Chemistry Sodium (135 - 145 mEq/L) 142 Potassium (3.5 - 5.0 mEq/L) 4.3 Chloride (100 - 115 mEq/L) 110 Carbon Dioxide (22 - 31 mEq/L) 25 Anion Gap (10 - 20) 11.00 BUN (7 - 18 mg/dL) 10 Creatinine (0.5 - 1.0 mg/dL) 1.0 Glomerular Filtr Rate (>60 ml/min) 69 Glucose (65 - 110 mg/dL) 78 Lactic Acid (0.5 - 2.2 MMOL/L) 1.1 Calcium (8.4 - 10.2 mg/dL) 8.2 L Total Bilirubin (0.2 - 1.0 mg/dL) 0.2 AST (15 - 37 units/L) 28 ALT (12 - 78 units/L) 15 Total Alk Phosphatase (46 - 116 units/L) 168 H Total Protein (6.3 - 8.2 gm/dL) 5.1 L Albumin (3.4 - 4.8 gm/dL) 2.1 L Coagulation PT (10.1 - 12.3 secs) 10.4 INR 0.94 PTT ([place]) (22 - 38 secs) 31.3 Hematology WBC (6.5 - 12.3 K/mm3) 20.5 *H 18.0 H RBC (3.51 - 4.69 M/mm3) 2.82 L 2.95 L Hgb (10.1 - 13.8 g/dL) 8.2 L 8.6 L Hct (32.5 - 41.8 %) 25.1 L 26.6 L MCV (84.6 - 96.6 fL) 89.0 90.2 MCH (27.3 - 33.9 pg) 29.1 29.2 MCHC (32.0 - 34.2 gm/dL) 32.7 32.3 RDW (12.2 - 16.3 %) 13.3 13.2 Plt Count (134 - 363 K/mm3) 128 L 104 L MPV (9.2 - 12.7 fL) 14.0 H 14.1 H Neut % (Auto) (57.9 - 77.3 %) 76.5 77.5 H Lymph % (Auto) (14.5 - 29.7 %) 14.7 14.3 L [place] % (Auto) (3.6 - 10.2 %) 7.8 7.4 Eos % (Auto) (0.0 - 3.0 %) 0.3 0.2 Baso % (Auto) (0.1 - 0.9 %) 0.2 0.2 Neut # (Auto) (K/mm3) 15.7 14.0 Lymph # (Auto) (K/mm3) 3.0 2.6 [place] # (Auto) (K/mm3) 1.6 1.3 Eos # (Auto) (K/mm3) 0.06 0.04 Baso # (Auto) (K/mm3) 0.0 0.0 Immature Plt Fraction (0.0 - 10.8 %) 23.1 H 24.3 H Urines Urine Color (YELLOW) COLORLESS Urine Appearance (CLEAR) CLEAR Urine pH (5 - 9) 6.0 Ur Specific [place] (1.001 - 1.035) 1.004 Urine Protein (NEG) NEGATIVE Urine Glucose (UA) (NEG) NEGATIVE Urine Ketones (NEG) NEGATIVE Urine Blood (NEG) 2+ H Urine Nitrite (NEG) NEG Urine Bilirubin (NEG) NEGATIVE Urine Urobilinogen (NEG mg/dL) NEGATIVE Ur Leukocyte Esterase (NEG) NEG Urine RBC (NONE SEEN #/hpf) 6-10 H Urine WBC (NONE SEEN #/hpf) 3-5 H Ur Epithelial Cells (RARE - FEW #/HPF) RARE Urine Bacteria (RARE - FEW /HPF) RARE Urine Mucus (NONE SEEN) RARE Microbiology: Date/Time Procedure - Status Source Growth 06/15 545 Blood Culture - RECD BLOOD 06/15 0545 Blood Culture Gram Stain - RECD BLOOD 06/15 0530 Blood Culture - RECD BLOOD 06/15 05 Blood Culture Gram Stain - RECD BLOOD Diagnosis, Assessment Plan Diagnosis, Assessment Plan Free text A P: Patient meets criteria for Sepsis defined as: Known or suspected infection with 2 or more signs of SIRS. Patient has a Lactic Acid <2. Assessment/Plan:: 1)Sepsis likely secondary to Intraamniotic Infection at delivery. (Time of Diagnosis:518) - Code Sepsis has been initiated. - Lab and cultures ordered. - Patient has been treated with Clindamycin/Gentamycin since delivery. pt has received all three doses of Clindamycin. will switch to Zosyn and continue Gentamyciin - IVF NS fluid bolus started; If lactic acid comes back> 4 and/ or pt progresses to septic shock will get 30ml/kg IVF required 2) pt now with some severe range BP and creatinine increasing: preeclampsia now progressed to with severe features -Start Magnesium for seizure prophylaxis -Transfer to [facility] [place] Strict I O; will insert Biggs - watch for fluid retention d/w Dr. Herbert aware of patient status and agrees with above at 0755 RPT #:[id number] END OF REPORT [facility] 2021-06-14 09:06:00 [facility] ([facility]) OB Delivery Note REPORT#:[id number] REPORT STATUS: Signed DATE:06/14/21 TIME: 905 PATIENT: STEFFEN SOFIA UNIT #: [id number] ROOM[address]BED: [address] : [address] AGE: 21 SEX: F ATTEND: Cayetano Herbert MD ADM AUTHOR: Cayetano Herbert MD * ALL edits or amendments must be made on the electronic/computer document * OB Delivery Nursing Documentation Review Nursing data: The data set between the solid lines has been imported from nursing documentation. Any exceptions have been noted below under Provider comments. _ ROM date: 06/13/21 ROM time: 2330 Membranes rupture method: SROM Amniotic fluid color: Clear Amniotic fluid amount: Steroids prior to arrival: Antibiotic prophylaxis given: Post hemorrhage risk score: Low Risk for Hemorrhage. Delivery date infant A: Delivery time infant A: Birthweight (gm) A: Weight (lb) A: Weight (oz) infant A: Gender A: Male 1 minute A: 5 minutes infant A: 10 minutes infant A: Cord pH obtained infant A: Vacuum time infant A: Vacuum # pulls A: Vacuum # popoffs infant A: QBL at delivery: __ Provider comments on imported nursing data: [] Pre-delivery GBS status: GBS status: negative evaluation at delivery: NRP certified personnel Admission EGA: Weeks: 39 Days: 4 EGA at delivery (wks/days): 39 weeks Admission indication: PreEclampsia without severe features Steroids Prior to Delivery Steroids prior to delivery: no, delivery on arrival Baby A Information Baby A information Delivery date: 06/14/21 Delivery time: 0837 status: live born Wt of baby: not yet available Gender: male 1 minute: 8 5 minutes: 9 Presentation: vertex Anomalies: none noted Additional comments: Mother with temperature elevation 100.2F, received Tylenol, now with temperature 100.4F at time of delivery Plan IV antibiotics Vaginal Delivery Vaginal delivery: Labor: induced Medications/Devices used: cytotec Vaginal delivery: spontaneous Amniotic fluid: clear Anesthesia type: epidural anesthesia Episiotomy: none Episiotomy repair: not applicable Laceration repair: 2-0 suture Placenta: intact Post delivery meds used: oxytocin Count: correct Vaginal packing: No Mother's condition: mother stable 's condition: stable in room Lacerations: Perineal laceration(s): 2nd Degree w/vag muscles, 2nd Degree w/binh muscles High vaginal laceration: no Extraction details OVD performed: no Shoulder dystocia present: no Blood Loss/Details Blood loss at delivery: <1000 ml EBL at delivery (ml's): 200 at 0910 RPT #:[id number] END OF REPORT [facility] 2021-06-13 15:50:00 [facility] ([facility]) OB Intrapart Prog Note REPORT#:[id number] REPORT STATUS: Signed DATE:06/13/21 TIME: 1550 PATIENT: STEFFEN SOFIA UNIT #: [id number] ROOM/BED: [address] : 99 AGE: 21 SEX: F ATTEND: Cayetano Herbert MD ADM AUTHOR: Cayetano Herbert MD * ALL edits or amendments must be made on the electronic/computer document * Subjective Subjective Admission EGA (wks/days): 39 weeks Patient reports: Patient reports: Yes contractions, No leaking fluid, No normal movement, No headache, No blurred vision, No scotomata Nursing reports: Nursing reports: No complaints Objective Nursing Documentation Review Nursing data: The data set between the solid lines has been imported from nursing documentation. Any exceptions have been noted below under Provider comments. __ ROM date: ROM time: __ Provider comments on imported nursing data: [] General VS: Last Documented: Result Date Time B/P Mean 104.0 06/13 1449 B/P 131/90 06/13 1449 Temp 98.1 06/13 1449 Pulse 86 06/13 1449 Vital Signs Date Temp Pulse Resp B/P B/P Mean Pulse Ox FiO2 06/13 98.1 86 131/90 104.0 PATIENT WEIGHT: Weight (lb): Weight (oz): Weight (kg): Objective Cervical/ exam: Dilatation (cm): 0 - closed Effacement (%): 25 station: - 3 Uterine activity: Monitor: toco Frequency (description): irregular FHR Evaluation Baby A: Baby A baseline: 120 bpm Baby A variability: moderate 6-25 bpm Baby A accelerations: 15 X 15 Baby A decelerations: decel noted in MAC when placed back on monitor, FHR luis to 80's for 4 minutes, associated with prolonged contraction Baby A FHR category: category 1 Baby A notes: FHR tracing now recovered, no further decels Diagnosis, Assessment Plan Free Text A P: 21 y/o G1 @ 39 4/7 weeks, PreEclampsia, for IOL: -plan cervical ripening - decel noted 13:10 today, reassuring since that time -BP's mild range, no toxemia symptoms -discussed with patient continuing with IOL she wishes to proceed, aware if evidence of distress, will proceed with C/Section at 1649 RPT #:[id number] END OF REPORT [facility] 2021-06-13 12:44:00 [facility] ([facility]) OB Admission / H P REPORT#:[id number] REPORT STATUS: Signed DATE:06/13/21 TIME: 1244 PATIENT: STEFFEN SOFIA UNIT #: [id number] ROOM/BED: [address] : 99 AGE: 21 SEX: F ATTEND: Cayetano Herbert MD ADM AUTHOR: Cayetano Herbert MD * ALL edits or amendments must be made on the electronic/computer document * OB History Nursing Documentation Review Nursing data: The data set between the solid lines has been imported from nursing documentation. Any exceptions have been noted below under Provider comments. Current data Steroids prior to arrival: ROM date: ROM time: EDC date: 06/17/21 Gestational age (labor triage): Post hemorrhage risk score: Prior history : 1 Para: 0 Term: : Abortions spontaneous: Abortions induced: Living children: Ectopic: Stillbirths: Live births: deaths: Number of previous C/S: Reported maternal labs/data Blood type: Rh type: Rubella: Hepatitis B: HIV exposure test: VDRL: Group B beta strep: Rho(D) immune globulin this preg: Monitor mode - UA: Feeding preference: Provider comments on imported nursing data: [] Chief complaint: uterine contractions HPI: 21 y/o G1 @ 39 4/7 weeks presenting with complaint of CTX's and overall not feeling well. Notes +FM, active, denies VB or LOF. 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 Additional Family History non-contributory Alcohol Use Denies EtOH use Drug Use Denies recreational drugs Smoking status: Smoking status for patients 13 years old or older: Never Smoker Other Social History 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, 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 social 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 Allergies: Coded Allergies: No Known Allergies (06/13/21) Review of Systems All systems rev neg: except as marked Objective General VS: PATIENT WEIGHT: Weight (lb): Weight (oz): Weight (kg): BP 130/90's Physical Exam HEENT: normocephalic w/o injury Cardiac: regular rate and rhythm Lungs: clear to auscultation Breasts: deferred Neuro: Exam: alert, oriented x3, normal speech Abdomen: gravid, soft Uterine activity: Monitor: toco Frequency (description): irregular Membranes: Membranes: Intact Lower extremities: Edema: 1+ pitting Baby A: Baby A variability: moderate 6-25 bpm Baby A accelerations: 15 X 15 Baby A decelerations: none Baby A FHR category: category 1 Result Findings/Data: Laboratory Tests: 06/13 06/13 0900 0800 Chemistry Sodium (135 - 145 mEq/L) 137 Potassium (3.5 - 5.0 mEq/L) 4.2 Chloride (100 - 115 mEq/L) 104 Carbon Dioxide (22 - 31 mEq/L) 22 Anion Gap (10 - 20) 15.10 BUN (7 - 18 mg/dL) 12 Creatinine (0.5 - 1.0 mg/dL) 0.9 Glomerular Filtr Rate (>60 ml/min) 78 Glucose (65 - 110 mg/dL) 77 Calcium (8.4 - 10.2 mg/dL) 9.0 Total Bilirubin (0.2 - 1.0 mg/dL) 0.2 AST (15 - 37 units/L) 22 ALT (12 - 78 units/L) 13 Total Alk Phosphatase (46 - 116 units/L) 228 H Total Protein (6.3 - 8.2 gm/dL) 6.1 L Albumin (3.4 - 4.8 gm/dL) 2.5 L Hematology WBC (6.5 - 12.3 K/mm3) 12.2 RBC (3.51 - 4.69 M/mm3) 3.86 Hgb (10.1 - 13.8 g/dL) 11.1 Hct (32.5 - 41.8 %) 33.8 MCV (84.6 - 96.6 fL) 87.6 MCH (27.3 - 33.9 pg) 28.8 MCHC (32.0 - 34.2 gm/dL) 32.8 RDW (12.2 - 16.3 %) 13.1 Plt Count (134 - 363 K/mm3) 164 MPV (9.2 - 12.7 fL) 14.2 H Neut % (Auto) (57.9 - 77.3 %) 73.1 Lymph % (Auto) (14.5 - 29.7 %) 16.0 [place] % (Auto) (3.6 - 10.2 %) 9.9 Eos % (Auto) (0.0 - 3.0 %) 0.3 Baso % (Auto) (0.1 - 0.9 %) 0.2 Neut # (Auto) (K/mm3) 8.9 Lymph # (Auto) (K/mm3) 2.0 [place] # (Auto) (K/mm3) 1.2 Eos # (Auto) (K/mm3) 0.04 Baso # (Auto) (K/mm3) 0.0 Urines Urine Color (YELLOW) YELLOW Urine Appearance (CLEAR) Slightly-Cloudy Urine pH (5 - 9) 6.0 Ur Specific Candor (1.001 - 1.035) 1.019 Urine Protein (NEG) 3+ H Urine Glucose (UA) (NEG) NEGATIVE Urine Ketones (NEG) NEGATIVE Urine Blood (NEG) NEG Urine Nitrite (NEG) NEG Urine Bilirubin (NEG) NEGATIVE Urine Urobilinogen (NEG mg/dL) NEGATIVE Ur Leukocyte Esterase (NEG) NEG Urine RBC (NONE SEEN #/hpf) 0-2 Urine WBC (NONE SEEN #/hpf) 6-10 H Ur Epithelial Cells (RARE - FEW #/HPF) FEW Urine Bacteria (RARE - FEW /HPF) RARE Urine Mucus (NONE SEEN) 4+ Ur Random Creatinine (mg/dL) 222.3 U Random Total Protein (mg/dL) 367.2 Protein/Creatinin Ratio (<200 mg/gcrea) 1651.8 H Diagnosis, Assessment Plan Diagnosis, Assessment Plan Free Text A P: 21 y/o G1 @ 39 4/7 weeks with PreEclampsia based on BP and proteinuria, no severe featurs at this time: -plan admit -cervical ripening with Dilapan on APU as no ed available in L D -GBS negative -ANFS overall reassuring -EFW 3444 g, cephalic serial BP monitoring, Magnesium sulfate if evidence of severe disease at 1550 RPT #:[id number] END OF REPORT [facility]
[2025-07-09] MEDS ORDERED: NA CHLORIDE 0.9% 1,000 ML ONE (05:11)
[2025-07-09] MEDS ORDERED: KETOROLAC 30 MG/ML INJ ONE (05:11)
[2025-07-09] MEDS ORDERED: ONDANSETRON 4 MG/2 ML VIAL ONE (05:11)
[2025-07-09 05:28] LABS: Absolute Lymphocytes (CBC) 3.4 K/uL (0.7-4.9); Hematocrit 37.0 % (36.0-45.0); Hemoglobin 13.0 g/dL (12.0-15.0); MCH 29.0 pg (27.0-35.0); MCHC 35.1 g/dL (32.0-36.0); MCV 82.8 fL (80-100); MPV 8.6 fL (7.6-11.3); Nucleated RBC Absolute Count 0.0 (0-0); Nucleated Red Blood Cells % 0.1 % (0-0); RBC Red Blood Cell Count 4.47 M/uL (3.86-4.86); White Blood Count 10.80 thou/uL (4.3-10.9)
[2025-07-09] MEDS ORDERED: MORPHINE 4 MG/ML SYR ONE (05:31)
[2025-07-09 05:37] LABS: Urine WBC Clump Occasional /HPF (None Seen)
[2025-07-09 05:38] LABS: Urine Microscopic Reflex YN NO UMIC
[2025-07-09 05:39] LABS: Urine Culture Reflex Order REFLEXED
[2025-07-09 05:50] LABS: ALT/SGPT 31.0 U/L (13-56); Albumin 3.7 g/dL (3.4-5.0); Albumin/Globulin Ratio 0.9 (1.1-1.8); Alkaline Phosphatase 66.0 U/L (45-117); Anion Gap 9.1 mEq/L (5.0-15.0); BUN Blood Urea Nitrogen 14.0 mg/dL (7-18); Globulin 3.9 g/dL (2.3-3.5); Glucose Level 98.0 mg/dL (74-106); Lipase 16.0 U/L (13-75)
[2025-07-09 05:51] LABS: AST/SGOT 24.0 U/L (15-37); Potassium 4.1 mEq/L (3.5-5.1)
[2025-07-09] MEDS ORDERED: CEFTRIAXONE 1000 MG/VIAL ONE (06:30)
--- NOTE | 2025-07-09 06:57 | RAD REPORT ---
INDICATION: back pain COMPARISON: No existing relevant imaging studies are available TECHNIQUE: Unenhanced CT of the abdomen and pelvis performed per protocol. Oral contrast was not administered. M ultiplanar reconstructions were provided. Dose reduction techniques were utilized for this exam including automated exposure control, adjustmen ts to mA and/or kV according to patient's size, and the use of iterative reconstruction techniques. FINDINGS: Lack of intravenous contrast limits evaluation of the viscera and vasculature. LOWER CHEST: Lung bases are clear. LIVER: Unremarkable. SPLEEN: Unremarkable. PANCREAS: Unremarkable. ADRENALS: Unremarkable. KIDNEYS: Punctate nonobstructive calculus within the upper pole of the left kidney. No hydronephrosis . GALLBLADDER: Unremarkable. VESSELS: Aortoiliac system normal in course and caliber. BOWEL: Unremarkable. APPENDIX: Normal. FLUID: No free fluid or abnormal fluid collection. ADENOPATHY: No pathologic adenopathy. BLADDER: Circumferential thickening of the urinary bladder wall. PELVIS: Uterus and adnexa are unremarkable. BONES: No acute bony abnormality. SOFT TISSUES: Unremarkable. IMPRESSION: 1. Urinary bladder wall thickening. Recommend correlation with urinalysis to evaluate for cystitis. . 2. Nonobstructive left-sided nephrolithiasis. Electronically signed by: Flash Varghese DO 07/09/2025 06:51 AM CDT NR Due to temporary technical issues with the PACS/CN [employer] reporting system, reports are being edilma d by the in-house radiologist without review as a courtesy to ensure prompt reporting the interpreting radiologist is fully responsible for the content of the report. Transcribed Date/Time: 07/09/2025 6:57 AM
--- NOTE | 2025-07-09 07:00 | EDPHYS ---
Physician Documentation [facility] Name: Ramya Sandoval Age: 25 yrs Sex: Female : 2000 Arrival Date: 07/09/2025 Time: 04:51 Bed 17 Private MD: ED Physician Bobby Lynch HPI: 07/09 04:58 This 25 yrs old Other Race Female presents to ER via Unassigned with complaints of Low sp4 Back Pain. 06:28 Patient presents with acute onset left flank pain starting 2 days ago. History of sp4 bilateral ureteral reflux with prior corrective surgery at 4 years of age.. 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 - Infectious Disease History:: Denies. - Social history:: Smoking status: Patient/guardian denies using tobacco, the patient reports quitting approximately 5 years ago, Patient/guardian denies using alcohol, street drugs. - Family history:: not pertinent. ROS: 06:28 Constitutional: Negative for fever, chills, and weight loss, positive for left flank sp4 pain 06:28 All other systems are negative, Exam: 06:28 Constitutional: This is a well developed, well nourished patient who is awake, alert, sp4 and in no acute distress. Head/Face: Normocephalic, atraumatic. Eyes: Pupils equal round and reactive to light, extra-ocular motions intact. Lids and lashes normal. Conjunctiva and sclera are not injected. Cornea within normal limits. Periorbital areas with no swelling, redness, or edema. ENT: Nares patent. No nasal discharge, no septal abnormalities noted. Tympanic membranes are normal and external auditory canals are clear. Oropharynx with no redness, swelling, or masses, exudates, or evidence of obstruction, uvula midline. Mucous membranes moist. Neck: Trachea midline, no thyromegaly or masses palpated, and no cervical lymphadenopathy. Supple, full range of motion without nuchal rigidity, or vertebral point tenderness. Chest/axilla: Normal chest wall appearance and motion. Nontender with no deformity. No lesions are appreciated. Cardiovascular: Regular rate and rhythm with a normal S1 and S2. No gallops, murmurs, or rubs. No pulse deficits. Respiratory: Lungs have equal breath sounds bilaterally, clear to auscultation and percussion. No rales, rhonchi or wheezes noted. No increased work of breathing, no retractions or nasal flaring. Abdomen/GI: Soft, with normal bowel sounds. No distension or tympany. No guarding or rebound. No evidence of tenderness throughout. Back: No spinal tenderness. No costovertebral tenderness. Skin: Warm, dry with normal turgor. Normal color with no rashes, no lesions, and no evidence of cellulitis. MS/ Extremity: Pulses equal, no cyanosis. Neurovascular intact. Full, normal range of motion. Neuro: Awake and alert, GCS 15, oriented to person, place, time, and situation. Cranial nerves II-XII grossly intact. Motor strength 5/5 in all extremities. Sensory grossly intact. Psych: Awake, alert, with orientation to person, place and time. Behavior, mood, and affect are within normal limits Vital Signs: 05:04 BP 133 / 107; Pulse 67; Resp 18; Temp 97.7; Pulse Ox 98% ; Weight 88.45 kg; Height 5 br2 ft. 3 in. ; Pain 6/10; 06:05 BP 108 / 53; Pulse 53; Resp 17; Pulse Ox 96% ; jj7 07:18 BP 103 / 63; Pulse 55; Resp 18; Temp 97.5; Pulse Ox 100% on R/A; ph 05:04 Body Mass Index 34.54 (88.45 kg, 160.02 cm) br2 05:04 Pain Scale: Adult br2 Radha Coma Score: 06:28 Eye Response: spontaneous(4). Motor Response: obeys commands(6). Verbal Response: sp4 oriented(5). Total: 15. MDM: 05:13 Medical Screening Exam initiated sp4 06:55 ED course: FINDINGS: Lack of intravenous contrast limits evaluation of the viscera and sp4 vasculature. LOWER CHEST: Lung bases are clear. LIVER: Unremarkable. SPLEEN: Unremarkable. PANCREAS: Unremarkable. ADRENALS: Unremarkable. KIDNEYS: Punctate nonobstructive calculus within the upper pole of the left kidney. No hydronephrosis. GALLBLADDER: Unremarkable. VESSELS: Aortoiliac system normal in course and caliber. BOWEL: Unremarkable. APPENDIX: Normal. FLUID: No free fluid or abnormal fluid collection. ADENOPATHY: No pathologic adenopathy. BLADDER: Circumferential thickening of the urinary bladder wall. PELVIS: Uterus and adnexa are unremarkable. BONES: No acute bony abnormality. SOFT TISSUES: Unremarkable. IMPRESSION: 1. Urinary bladder wall thickening. Recommend correlation with urinalysis to evaluate for cystitis.. 2. Nonobstructive left-sided nephrolithiasis. Electronically signed by: Flash Varghese DO 07/09/2025 06:51 AM. 07/10 06:57 Differential diagnosis: arthritis, strain, contusion, Herniated disc UTI. Data sp4 reviewed: vital signs, nurses notes, lab test result(s), radiologic studies. Consideration of Admission/Observation Escalation of care including admission/observation considered. ED course: Stable for discharge home.. 07/09 05:07 Order name: CBC with Diff; Complete Time: 06:26 sp4 07/09 05:07 Order name: CMP; Complete Time: 06:26 sp4 07/09 05:07 Order name: Lipase; Complete Time: 06:26 sp4 07/09 05:07 Order name: Test, Urine; Complete Time: 06:26 sp4 07/09 05:23 Order name: UA Rfx Esvin Cult if indicated; Complete Time: 06:26 EDMS 07/09 05:42 Order name: Urine Culture EDKY 07/09 05:07 Order name: CT Abd/Pelvis - Without Contrast sp4 07/09 05:07 Order name: IV Saline Lock; Complete Time: 05:23 sp4 07/09 05:07 Order name: Labs collected and sent; Complete Time: 05:23 sp4 Administered Medications: 07/09 05:13 CANCELLED (Physician Discretion): TORadol - [id number] mg IVP once sp4 05:23 Drug: Ondansetron IVP 4 mg IVP once; over 2 minutes Route: IVP; Site: right antecubital;jj7 07:22 Follow up: Response: No adverse reaction ph 05:23 Drug: NS 0.9% IV 1000 ml IV at 1 bolus Per protocol; to be given as a bolus over 60 jj7 minutes Route: IV; Rate: 1 bolus; Site: right antecubital; 07:21 Follow up: Response: No adverse reaction; IV Status: Completed infusion ph 05:23 Drug: Ketorolac IVP 30 mg IVP once Route: IVP; Site: right antecubital; jj7 06:29 Follow up: Response: Marked relief of symptoms; Pain is decreased jj7 05:53 Drug: Droperidol IVP 2.5 mg IVP once Route: IVP; Site: right antecubital; br2 06:29 Follow up: Response: Marked relief of symptoms; Pain is decreased jj7 05:54 Drug: morphine IVP or IV 4 mg IVP once over 4 mins Route: IVP; Infused Over: 4 mins; br2 Site: right antecubital; 06:29 Follow up: Response: Marked relief of symptoms; Pain is decreased jj7 06:33 Drug: Rocephin - Rocephin (cefTRIAXone) IVPB 1 grams IVPB once over 30 mins; (mix in 50 jj7 mL NS) Route: IVPB; Infused Over: 30 mins; Site: right antecubital; 07:21 Follow up: Response: No adverse reaction; IV Status: Completed infusion ph 07:15 Drug: Cefdinir PO 300 mg PO once Route: PO; ph 07:19 Follow up: Response: No adverse reaction; Medication administered at discharge. ph Disposition: 07/10 06:57 Chart complete. sp4 Disposition Summary: 07/09/25 06:59 Discharge Ordered Notes: Location: Home sp4 Problem: new sp4 Symptoms: have improved sp4 Condition: Stable sp4 Diagnosis - Acute pyelonephritis, acute left flank pain sp4 Followup: sp4 - With: Private Physician - When: 7 - 10 days - Reason: Recheck today's complaints Discharge Instructions: - Discharge Summary Sheet sp4 - Pyelonephritis, Adult, [id number] sp4 Forms: - Family Work Release ph - Patient Portal Instructions sp4 Prescriptions: - cefdinir 300 mg Oral capsule - take 1 capsule ORAL route 2 times per day for 10 days; 20 capsule; Refills: 0, sp4 Product Selection Permitted - meloxicam 15 mg Oral tablet - take 1 tablet ORAL route daily PRN pain; 30 tablet; Refills: 0, Product sp4 Selection Permitted - Tramadol 50 mg Oral tablet - take 1 tablet ORAL route every 8 hours as needed; 20 tablet; Refills: 0, sp4 Product Selection Permitted - ondansetron 8 mg Oral Tablet,disintegrating - take 1 tablet ORAL route every 8 hours PRN nausea; 30 tablet; Refills: 0, sp4 Product Selection Permitted Signatures: Dispatcher [employer] EDJocelyn Mayer RN RN karen Ang, Geraldine RN RN jj7 Bobby Lynch MD MD sp4 Princess Troy RN RN br2 Corrections: (The following items were deleted from the chart) 07/09 05:09 05:07 PSHx: None; br2 br2 05:13 05:07 TORadol - Ketorolac IVP 15 mg IVP once ordered. sp4 sp4 05:23 05:08 UA W/ Microscopic+U.LAB.BRZ ordered. EDMS EDMS
--- NOTE | 2025-07-09 07:00 | ER ---
Nurse's Notes [facility] Name: Ramya Sandoval Age: 25 yrs Sex: Female : 2000 Arrival Date: 07/09/2025 Time: 04:51 Bed 17 Private MD: Diagnosis: Acute pyelonephritis, acute left flank pain Presentation: 07/09 05:04 Chief complaint: Patient states: LEFT FLANK PAIN FREQ URINATION SINCE TUESDAY, NAUSEA. br2 DENIES V/D/F. Coronavirus screen: Client denies travel out of the [place] in the last 14 days. Ebola Screen: Patient denies exposure to infectious person. Initial Sepsis Screen: Does the patient meet any 2 criteria? No. Patient's initial sepsis screen is negative. Does the patient have a suspected source of infection? No. Patient's initial sepsis screen is negative. Risk Assessment: Do you want to hurt yourself or someone else? Patient reports no desire to harm self or others. Onset of symptoms was June 25, 2025. 05:04 Method Of Arrival: Ambulatory br2 05:04 Acuity: JULIA 3 br2 Triage Assessment: 05:07 General: Appears uncomfortable, Behavior is calm, cooperative. Pain: Complains of pain br2 in left low back Pain currently is 6 out of 10 on a pain scale. 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 - Infectious Disease History:: Denies. - Social history:: Smoking status: Patient/guardian denies using tobacco, the patient reports quitting approximately 5 years ago, Patient/guardian denies using alcohol, street drugs. - Family history:: not pertinent. Screenin:05 [facility] ED Fall Risk Assessment (Adult) History of falling in the last 3 months, jj7 including since admission No falls in past 3 months (0 pts) Confusion or Disorientation No (0 pts) Intoxicated or Sedated No (0 pts) Impaired Gait No (0 pts) Mobility Assist Device Used No (0 pt) Altered Elimination No (0 pt) Score/Fall Risk Level 0 - 2 = Low Risk Oriented to surroundings, Maintained a safe environment, Educated pt \T\ family on fall prevention, incl call for assistance when getting out of bed, Assessed \T\ reinforced patient's understanding of fall precautions. Abuse screen: Denies threats or abuse. Nutritional screening: No deficits noted. Tuberculosis screening: No symptoms or risk factors identified. Assessment: 05:05 General: Appears in no apparent distress. uncomfortable, Behavior is calm, cooperative, jj7 appropriate for age. Pain: Complains of pain in left low back and left mid back Pain currently is 9 out of 10 on a pain scale. : Reports pain in left flank(s). 07:19 Reassessment: Patient appears in no apparent distress at this time. Patient and/or ph family updated on plan of care and expected duration. Pain level reassessed. Patient is alert, oriented x 3, equal unlabored respirations, skin warm/dry/pink. Patient states feeling better. Vital Signs: 05:04 BP 133 / 107; Pulse 67; Resp 18; Temp 97.7; Pulse Ox 98% ; Weight 88.45 kg; Height 5 br2 ft. 3 in. ; Pain 6/10; 06:05 BP 108 / 53; Pulse 53; Resp 17; Pulse Ox 96% ; jj7 07:18 BP 103 / 63; Pulse 55; Resp 18; Temp 97.5; Pulse Ox 100% on R/A; ph 05:04 Body Mass Index 34.54 (88.45 kg, 160.02 cm) br2 05:04 Pain Scale: Adult br2 Radha Coma Score: 06:28 Eye Response: spontaneous(4). Motor Response: obeys commands(6). Verbal Response: sp4 oriented(5). Total: 15. ED Course: 04:53 Patient arrived in ED. jj6 04:58 Bobby Lynch MD is Attending Physician. sp4 05:05 Patient has correct armband on for positive identification. Bed in low position. Call jj7 light in reach. Adult w/ patient. Provided Education on: USE OF CALL SMITH. Warm blanket given. 05:05 Inserted saline lock: 20 gauge in right antecubital area, using aseptic technique. jj7 Blood collected. Flushed with 10 mL NS. 05:07 Triage completed. br2 05:07 Arm band placed on right wrist. br2 05:14 Radiology exam delayed due to test not completed at this time. eh 05:23 Geraldine Ang, RN is Primary Nurse. jj7 05:23 CBC with Diff Sent. jj7 05:23 CMP Sent. jj7 05:23 Lipase Sent. jj7 05:23 Test, Urine Sent. jj7 05:24 UA Rfx Esvin Cult if indicated Sent. jj7 05:53 CT Abd/Pelvis - Without Contrast In Process Unspecified. EDMS 07:01 Report given to SURESH HOPKINS. jj7 07:19 No provider procedures requiring assistance completed. IV discontinued, intact, ph bleeding controlled, No redness/swelling at site. Pressure dressing applied. Administered Medications: 05:13 CANCELLED (Physician Discretion): TORadol - [id number] mg IVP once sp4 05:23 Drug: Ondansetron IVP 4 mg IVP once; over 2 minutes Route: IVP; Site: right antecubital;jj7 07:22 Follow up: Response: No adverse reaction ph 05:23 Drug: NS 0.9% IV 1000 ml IV at 1 bolus Per protocol; to be given as a bolus over 60 jj7 minutes Route: IV; Rate: 1 bolus; Site: right antecubital; 07:21 Follow up: Response: No adverse reaction; IV Status: Completed infusion ph 05:23 Drug: Ketorolac IVP 30 mg IVP once Route: IVP; Site: right antecubital; jj7 06:29 Follow up: Response: Marked relief of symptoms; Pain is decreased jj7 05:53 Drug: Droperidol IVP 2.5 mg IVP once Route: IVP; Site: right antecubital; br2 06:29 Follow up: Response: Marked relief of symptoms; Pain is decreased jj7 05:54 Drug: morphine IVP or IV 4 mg IVP once over 4 mins Route: IVP; Infused Over: 4 mins; br2 Site: right antecubital; 06:29 Follow up: Response: Marked relief of symptoms; Pain is decreased jj7 06:33 Drug: Rocephin - Rocephin (cefTRIAXone) IVPB 1 grams IVPB once over 30 mins; (mix in 50 jj7 mL NS) Route: IVPB; Infused Over: 30 mins; Site: right antecubital; 07:21 Follow up: Response: No adverse reaction; IV Status: Completed infusion ph 07:15 Drug: Cefdinir PO 300 mg PO once Route: PO; ph 07:19 Follow up: Response: No adverse reaction; Medication administered at discharge. ph Medication: 05:05 VIS not applicable for this client. jj7 Outcome: 06:59 Discharge ordered by MD. holt 07:20 Discharged to home ambulatory, with significant other, ph 07:20 Condition: good 07:20 Discharge instructions given to patient, Instructed on discharge instructions, follow up and referral plans. medication usage, Demonstrated understanding of instructions, follow-up care, medications, Prescriptions given X 4, 07:20 Patient left the ED. ph Signatures: Dispatcher [employer] EDMS Jay Boudreaux Patricia, RN RN Nasreen Marquez jj6 Geraldine Ang RN RN jj7 Bobby Lynch MD MD sp4 Princess Troy RN RN br2 Corrections: (The following items were deleted from the chart) 05:09 05:07 PSHx: None; br2 br2
[2025-07-09] MEDS ORDERED: CEFDINIR 300 MG CAP PO ONE (07:04)
[2025-07-09 14:05] VITALS: BP 103/63; TEMP 97.5; O2SAT 100
== END 2025-07-09 07:20 | disposition home or self-care (01) ==
LOC: ER 04:51
DX: N10 Acute pyelonephritis (principal)
CPT/HCPCS: 96365; 96361; 87088; 85025; 87086; 36415; 81025; 81003; 83690; 80053; 74176; 96375; 99284; J2405; J1790; J7030; J0696